=== PATIENT | male | born 1980 | race Caucasian/White ===

== ENCOUNTER 2016-10-14 21:53 | Emergency (ER) ==
[2016-10-14] MEDS ORDERED: SODIUM CHLORIDE 1,000 ML IV STA (21:55)
[2016-10-14 22:07] VITALS: BP 107/51; TEMP 101.1; BMI 25.8
[2016-10-14] MEDS ORDERED: ZOFRAN 4 MG/2 ML IVP STA (22:07)
[2016-10-14 22:08] LABS: BASOPHILS % (AUTO) 0.1 % (0.0-3.0); HEMATOCRIT 41.9 % (42.0-52.0); HEMOGLOBIN 13.6 g/dl (14.0-18.0); IMMATURE GRANULOCYTE % (AUTO) 0.5 % (0.0-5.0); LYMPHOCYTES # (AUTO) 1.4 K/uL (0.60-3.4); LYMPHOCYTES % (AUTO) 9.7 (10.0-50.0); MEAN CORPUSCULAR HEMOGLOBIN 30.1 pg (27.0-31.0); MEAN CORPUSCULAR HGB CONC 32.5 (31.8-35.4); MEAN CORPUSCULAR VOLUME 92.7 fl (80.0-94.0); NEUTROPHILS # (AUTO) 11.9 K/ul (2.0-6.9); NEUTROPHILS % (AUTO) 82.7; PLATELET COUNT 257 10^3/uL (140-440); RED BLOOD COUNT 4.52 10^6/ul (4.70-6.10); WHITE BLOOD COUNT 14.37 K/ul (4.2-10.2)
[2016-10-14] MEDS ORDERED: DILAUDID 1 MG/ML SYRINGE ONE ×2 (22:21→23:30)
[2016-10-14] MEDS: DILAUDID 1 MG/ML SYRINGE IVP PRN ×2 (22:24→23:32)
[2016-10-14 22:25] LABS: ALBUMIN 4.6 g/dL (3.4-5.0); ALBUMIN/GLOBULIN RATIO 1.35; ANION GAP 17.7; BILIRUBIN,TOTAL 0.46 mg/dL (0.00-1.20); BUN/CREATININE RATIO 20.93; CALCIUM 9.8 mg/dL (8.2-10.2); CREATININE 0.86 mg/dL (0.60-1.10); POTASSIUM 3.7 mmol/L (3.5-5.1)
[2016-10-14 22:52] LABS: ERYTHROCYTE SEDIMENTATION RATE 12 mm/hr (0-15); ESR INTERNAL QC INTERNAL QC VALID
[2016-10-14 22:53] LABS: CREATINE KINASE 191 U/L
[2016-10-14 22:55] LABS: CREATINE KINASE MB 1.6 ng/ml (0.0-3.6)
[2016-10-14 23:24] LABS: BILIRUBIN,URINE Negative (NEGATIVE); KETONES,URINE Trace (NEGATIVE); LEUKOCYTE ESTERASE ,URINE Negative (NEGATIVE); NITRITE,URINE Negative (NEGATIVE); PROTEIN,URINE 2+ (NEGATIVE); URINE, BLOOD Negative (NEGATIVE)
--- NOTE | 2016-10-14 23:24 | CT ---
Exam: CT of the abdomen and pelvis without and with contrast History: Abdominal pain and fever Technique: [address] of the abdomen and pelvis pre and post intravascular contrast FINDINGS: The lung bases are clear. No significant liver abnormality. The adrenals, pancreas and spl een are unremarkable. The stomach and hiatus are unremarkable.The gallbladder appears normal. There is a 2 mm nonobstructing calculus in the left kidney. The kidneys and collecting system are unremar kable otherwise. The appendix is not seen. Bowel loops demonstrate normal caliber. No inflamatory c hange seen in the mesentery or retroperitoneum. Vascular structures appear normal. Pelvic genitourinary structures appear normal. Pelvic bowel loops are unremarkable. No inflammatory change in the pelvic fat. No acute abnormality of the abdominal or pelvic skeleton. Impression: 1. No inflammatory process, bowel or urinary obstruction is seen. 2. Single nonobstructing calculus in the left kidney
[2016-10-14 23:26] LABS: ADD URINE MICROSCOPIC YES
[2016-10-14 23:34] LABS: COCAIN SCREEN,URINE NEGATIVE (NEGATIVE)
[2016-10-14] MEDS ORDERED: PHENERGAN 25 MG/ML VIAL 25 MG in SODIUM CHLORIDE 50 ML IV STA (23:38)
--- NOTE | 2016-10-14 23:41 | ED.PDOC ---
General ED Provider: Dr. SARAH FARNSWORTH-ER Chief Complaint: Abdominal Pain Stated Complaint: im hurting Time Seen by Physician: 22:05 Mode of Arrival: Walk-In Information Source: Patient, Family Exam Limitations: No limitations Nursing and Triage Documentation Reviewed and Agree: Yes GI Complaint Exam - Abdominal Pain Complaint/Exam Onset: Gradual Duration: several hours Symptoms Are: Still present Timing: Constant Initial Severity: Mild Current Severity: Moderate Location of Pain: Diffuse Character: Reports: Dull, Aching, Cramping Aggravating: Reports: None Associated Signs and Symptoms: Reports: Nausea, Vomiting Related History: Reports: Similar episode AAA Risk Factors: Reports: None Cardiac Risk Factors: Reports: None Testicular Torsion Risk Factors: Reports: None Related Surgical History: Reports: None Abdominal Findings: Present: None Differential Diagnoses: Constipation, Pancreatitis Quality Indicator For Non-Traumatic Chest Pain/Syncope: EKG Performed Review of Systems - Review Of Systems Constitutional: Reports: No symptoms Eyes: Reports: No symptoms Ears, Nose, Mouth, Throat: Reports: No symptoms Respiratory: Reports: No symptoms Cardiac: Reports: No symptoms GI: Reports: Abdominal pain, Diarrhea, Nausea, Vomiting : Reports: No symptoms Musculoskeletal: Reports: No symptoms Skin: Reports: No symptoms Neurological: Reports: No symptoms Endocrine: Reports: No symptoms Hematologic/Lymphatic: Reports: No symptoms All Other Systems: Reviewed and Negative Past Medical History - Past Medical History Previously Healthy: Yes Endocrine: Reports: None Cardiovascular: Reports: None Respiratory: Reports: None Hematological: Reports: None Gastrointestinal: Reports: Pancreatitis Genitourinary: Reports: None Neuro/Psych: Reports: None Musculoskeletal: Reports: None Cancer: Reports: None - Surgical History General Surgical History: Reports: Unknown - Family History Family History: Reports: Unknown - Social History Smoking Status: Current every day smoker Hx Substance Use: No Alcohol Screening: None Lives: With family - Immunizations Tetanus Shot up to Date: Yes Physical Exam - Physical Exam Appearance: Well-appearing, No pain distress, Well-nourished Pain Distress: Moderate Eyes: HUA, EOMI, Conjunctiva clear ENT: Ears normal, Nose normal, Oropharynx normal Neck: Supple Respiratory: Airway patent, Breath sounds clear, Breath sounds equal, Respirations nonlabored Cardiovascular: RRR GI/: Soft Musculoskeletal: Normal strength Skin: Warm Neurological: Sensation intact Psychiatric: Affect appropriate Interpretation - Radiology Interpretation Radiology Interpretation By: Radiologist Radiology Results: Negative Exam Interpreted: CT Scan - EKG Interpretation Time of EKG #1: 23:41 Rate: Xavier Rhythm: Sinus Ectopy: None [place]: NL ST Segment: Normal Re-Evaluation - Re-Evaluation Time of Re-Evaluation: 23:41 Status: Improved Vital Signs Stable: Yes Pain Level: 1 Appearance: NAD Lungs: Clear Skin: Warm and Dry Neuro: Alert and Oriented X3 CV: RRR Critical Care Note - Critical Care Note Total Time (mins): 0 Course - Course Hematology/Chemistry: 10/14/16 22:00 10/14/16 22:00 Orders, Labs, Meds: Lab Review 10/14/16 10/14/16 10/14/16 22:00 22:15 23:20 WBC 14.37 H RBC 4.52 L Hgb 13.6 L Hct 41.9 L MCV 92.7 MCH 30.1 MCHC 32.5 RDW Coeff of Valeriy 12.8 Plt Count 257 Immature Gran % (Auto) 0.5 Neut % (Auto) 82.7 Lymph % (Auto) 9.7 L Wirt % (Auto) 7.0 Eos % (Auto) 0.0 Baso % (Auto) 0.1 Immature Gran # (Auto) 0.1 Neut # 11.9 H Lymph # 1.4 Wirt # 1.0 Eos # 0.0 Baso # 0.0 ESR 12 Sodium 144 Potassium 3.7 Chloride 108 H Carbon Dioxide 22 Anion Gap 17.7 BUN 18 Creatinine 0.86 Estimated GFR (MDRD) 101.00 BUN/Creatinine Ratio 20.93 Glucose 116 H Lactic Acid 15.0 Calcium 9.8 Total Bilirubin 0.46 AST 22 ALT 22 Alkaline Phosphatase 61 Total Creatine Kinase 191 CK-MB (CK-2) 1.6 CK-MB (CK-2) % 0.30864 Troponin I < 0.0100 Total Protein 8.0 Albumin 4.6 Globulin 3.4 Albumin/Globulin Ratio 1.35 Amylase 65 Lipase 34 Procalcitonin < 0.05 Urine Color Yellow Urine Clarity Clear Urine pH 7.0 Ur Specific [place] 1.020 Urine Protein 2+ Urine Glucose (UA) Negative Urine Ketones Trace Urine Blood Negative Urine Nitrite Negative Urine Bilirubin Negative Urine Urobilinogen 0.2 Ur Leukocyte Esterase Negative Ur Squamous Epith Cells 2-5 Urine Mucus 1+ Urine Opiates Screen Positive Ur Oxycodone Screen Negative Urine Methadone Screen Negative Ur Propoxyphene Screen Negative Ur Barbiturates Screen Negative U Tricyclic Antidepress Negative Ur Phencyclidine Scrn Negative Ur Amphetamine Screen Positive U Methamphetamines Scrn Positive U Benzodiazepines Scrn Negative Urine Cocaine Screen Negative U Cannabinoids Screen Positive Orders Category Date Time Status EKG-(ED ONLY) Stat CARDIO 10/14/16 21:55 Ordered NPO REMINDER: IMAGING ONCE CARE 10/14/16 22:05 Completed ED IV/MEDIPORT/POWERPORT .ONCE EMERGENCY 10/14/16 21:55 Active AMYLASE Stat LAB 10/14/16 22:00 Completed BLOOD CULTURE Stat LAB 10/14/16 22:15 Received CBC W/ AUTO DIFF Stat LAB 10/14/16 22:00 Completed COMPREHENSIVE METABOLIC PANEL Stat LAB 10/14/16 22:00 Completed CREATINE KINASE Stat LAB 10/14/16 22:00 Completed ESR Stat LAB 10/14/16 22:15 Completed LACTIC ACID Stat LAB 10/14/16 22:15 Completed LIPASE Stat LAB 10/14/16 22:00 Completed PROCALCITONIN Stat LAB 10/14/16 22:15 Completed TROPONIN I Stat LAB 10/14/16 22:00 Completed URINALYSIS C & S IF INDICATED Stat LAB 10/14/16 23:20 Completed URINE DRUG SCREEN (RAPID FOR ED) [DRUG SCREEN, URINE, LAB 10/14/16 23:20 Completed RAPID] Stat 0.9 % Sodium Chloride [Saline Flush] MEDS 10/14/16 21:55 Ordered 1 syr IVF PRN PRN Hydromorphone HCl [Dilaudid 1 mg/ml Syringe] MEDS 10/14/16 22:06 Ordered 1 mg IVP Q1HR PRN Ondansetron HCl/Pf [Zofran 4 mg/2 ml] MEDS 10/14/16 22:07 Discontinued 4 mg IVP ONCE STA Promethazine HCl [Phenergan 25 mg/ml Vial] 25 mg MEDS 10/14/16 23:38 Active 0.9 % Sodium Chloride [Sodium Chloride] 50 ml IV ONCE Sodium Chloride 0.9% [Sodium Chloride] 1,000 ml MEDS 10/14/16 21:55 Active IV 100 mls/hr CT ABDOMEN/PELVIS W/WO CONTRAS Stat RADS 10/14/16 22:05 Completed Medications Generic Name Dose Route Start Last Admin Trade Name Freq PRN Reason Stop Dose Admin Hydromorphone HCl 1 mg 06/21/17 22:06 10/14/16 23:32 Dilaudid 1 Mg/Ml Syringe IVP 1 mg Q1HR PRN Administration Abdominal Pain Sodium Chloride 1,000 mls @ 100 mls/hr 10/14/16 21:55 10/14/16 22:22 Sodium Chloride IV 10/15/16 07:54 100 mls/hr .Q10H STA Administration Promethazine HCl 25 mg/ Sodium 51 mls @ 75 mls/hr 10/14/16 23:38 Chloride IV 10/15/16 00:18 ONCE STA Sodium Chloride 1 syr 10/14/16 21:55 10/14/16 22:28 Saline Flush IVF 1 syr PRN PRN Administration To flush IV Discontinued Medications Generic Name Dose Route Start Last Admin Trade Name Freq PRN Reason Stop Dose Admin Ondansetron HCl 4 mg 10/14/16 22:07 10/14/16 22:22 Zofran 4 Mg/2 Ml IVP 10/14/16 22:08 4 mg ONCE STA Administration Vital Signs: Temp Pulse Resp BP Pulse Ox 10/14/16 22:02 101.1 F H 97 H 20 107/51 L 97 Departure - Departure Time of Disposition: 23:42 Disposition: HOME SELF-CARE Discharge Problem: Chronic pancreatitis Qualifiers: Pancreatitis type: unspecified pancreatitis type Qualifier Code: (K86.1) Other chronic pancreatitis Instructions: Pancreatitis (ED) Condition: Good Pt referred to PMD for follow-up: Yes Additional Instructions: f/u with pcp Allergies/Adverse Reactions: Allergies No Known Allergies Allergy (Verified 10/14/16 22:08) Home Medications: Ambulatory Orders Gabapentin [Neurontin] 600 mg PO TID 10/14/16 Disposition Discussed With: Patient, Family
[2016-10-14] MEDS ORDERED: PHENERGAN 25 MG/ML VIAL ONE (23:42)
== END 2016-10-14 23:50 | disposition home or self-care (01) ==
LOC: ED 21:53
DX: K86.1 Other chronic pancreatitis (principal); F17.210 Nicotine dependence, cigarettes, uncomplicated
CPT/HCPCS: 36415; 80053; 80306; 81001; 82150; 82550; 82553; 83605; 83690; 84145; 84484; 85025; 85651; 87040; 93005; 93010; 96361; 96374; 96375; 96376; 99283

== ENCOUNTER 2016-10-16 18:09 | Emergency (ER) | payer OTHER ==
[2016-10-16 18:09] VITALS: BMI 25.8
[2016-10-16 18:20] VITALS: BP 142/85; TEMP 96.8
[2016-10-16] MEDS ORDERED: ZOFRAN 4 MG/2 ML IVP STA (18:57)
[2016-10-16] MEDS ORDERED: SODIUM CHLORIDE 1,000 ML IV STA (18:57)
[2016-10-16] MEDS ORDERED: DILAUDID 1 MG/ML SYRINGE IVP STA ×2 (18:57→20:04)
[2016-10-16 19:09] LABS: BASOPHILS % (AUTO) 0.4 % (0.0-3.0); EOSINOPHILS # (AUTO) 0.1 K/ul (0.0-0.7); EOSINOPHILS % (AUTO) 0.6 % (0.0-7.0); HEMATOCRIT 42.1 % (42.0-52.0); HEMOGLOBIN 13.9 g/dl (14.0-18.0); IMMATURE GRANULOCYTE % (AUTO) 0.3 % (0.0-5.0); LYMPHOCYTES # (AUTO) 1.4 K/uL (0.60-3.4); LYMPHOCYTES % (AUTO) 12.9 (10.0-50.0); MEAN CORPUSCULAR HEMOGLOBIN 30.2 pg (27.0-31.0); MEAN CORPUSCULAR VOLUME 91.5 fl (80.0-94.0); MONOCYTES # (AUTO) 0.7 K/uL (0.4-2.0); MONOCYTES % (AUTO) 6.3 (0-10); NEUTROPHILS # (AUTO) 8.4 K/ul (2.0-6.9); NEUTROPHILS % (AUTO) 79.5; PLATELET COUNT 262 10^3/uL (140-440); WHITE BLOOD COUNT 10.55 K/ul (4.2-10.2)
[2016-10-16 19:30] LABS: ALBUMIN 4.4 g/dL (3.4-5.0); ALBUMIN/GLOBULIN RATIO 1.47; ANION GAP 13.2; BILIRUBIN,TOTAL 0.49 mg/dL (0.00-1.20); BUN/CREATININE RATIO 17.04; CALCIUM 8.8 mg/dL (8.2-10.2); CREATININE 0.88 mg/dL (0.60-1.10); POTASSIUM 3.2 mmol/L (3.5-5.1); TOTAL PROTEIN 7.4 g/dL (6.4-8.2)
[2016-10-16 19:43] LABS: BILIRUBIN,URINE Negative (NEGATIVE); KETONES,URINE 1+ (NEGATIVE); LEUKOCYTE ESTERASE ,URINE Negative (NEGATIVE); NITRITE,URINE Negative (NEGATIVE); PROTEIN,URINE Trace (NEGATIVE); URINE, BLOOD Negative (NEGATIVE)
[2016-10-16 19:46] LABS: CREATINE KINASE 122 U/L
[2016-10-16 19:47] LABS: CREATINE KINASE MB 0.7 ng/ml (0.0-3.6)
[2016-10-16 19:49] LABS: ADD URINE MICROSCOPIC YES
--- NOTE | 2016-10-16 19:54 | CT ---
EXAM: CT of the abdomen pelvis without contrast History: Abdominal pain and vomiting. History of chronic pancreatitis and previous appendectomy Comparison: CT abdomen pelvis 10/14/2016 Technique: Multiplanar CT images through the abdomen pelvis were obtained without the administratio n of IV contrast Findings: Lung bases are clear. No acute osseous abnormalities. No discrete gallstones identified by CT. No focal liver or splenic lesions. No peripancreatic infl ammation. Adrenal glands are unremarkable. 2 mm calculus within the left kidney. No hydronephrosi s. Appendix is not seen. No bowel obstruction. No free air. No ascites. Borderline dilated loop of small bowel within the pelvis. Bladder is not well distended. There is no bladder wall thicken ing. No perirectal inflammation. Scattered colonic stool. Prostate is not enlarged Impression: 1. No acute intra-abdominal or pelvic process. 2. Nonobstructing left nephrolithiasis.
[2016-10-16] MEDS ORDERED: K-DUR PO STA (20:04)
--- NOTE | 2016-10-16 20:07 | ED.PDOC ---
General ED Provider: Dr. SARAH FARNSWORTH-ER Chief Complaint: Nausea/Vomiting Stated Complaint: im vomiting Time Seen by Physician: 18:15 Mode of Arrival: Walk-In Information Source: Patient Exam Limitations: No limitations Nursing and Triage Documentation Reviewed and Agree: Yes GI Complaint Exam - Abdominal Pain Complaint/Exam Onset: Gradual Duration: several hours Symptoms Are: Still present Initial Severity: Mild Current Severity: Moderate Location of Pain: Diffuse Character: Reports: Dull, Aching, Cramping Aggravating: Reports: None Alleviating: Reports: Spontaneous resolution Associated Signs and Symptoms: Reports: Decreased appetite, Nausea, Vomiting. Denies: Diaphoresis, Fever, Cough, Chest pain, Dizziness, Back pain, Constipation, Blood in stool, Dysuria, Urinary frequency, Decreased urine output , Discharge, Diarrhea, Decreased activity Related History: Reports: Similar episode AAA Risk Factors: Reports: None Cardiac Risk Factors: Reports: None Testicular Torsion Risk Factors: Reports: None Surgical Obstruction Risk Factors: Reports: Colicky abdominal pain Abdominal Findings: Present: None Differential Diagnoses: Constipation, Pancreatitis Quality Indicator For Non-Traumatic Chest Pain/Syncope: EKG Performed Review of Systems - Review Of Systems Constitutional: Reports: No symptoms Eyes: Reports: No symptoms Ears, Nose, Mouth, Throat: Reports: No symptoms Respiratory: Reports: No symptoms Cardiac: Reports: No symptoms GI: Reports: Abdominal pain, Nausea, Vomiting : Reports: No symptoms Musculoskeletal: Reports: No symptoms Skin: Reports: No symptoms Neurological: Reports: No symptoms Endocrine: Reports: No symptoms Hematologic/Lymphatic: Reports: No symptoms All Other Systems: Reviewed and Negative Past Medical History - Past Medical History Previously Healthy: Yes Endocrine: Reports: None Cardiovascular: Reports: None Respiratory: Reports: None Hematological: Reports: None Gastrointestinal: Reports: Pancreatitis Genitourinary: Reports: None Neuro/Psych: Reports: None Musculoskeletal: Reports: None Cancer: Reports: None - Surgical History General Surgical History: Reports: Unknown - Family History Family History: Reports: Unknown - Social History Smoking Status: Current every day smoker Hx Substance Use: No Alcohol Screening: None Physical Exam - Physical Exam Appearance: Well-appearing Pain Distress: Moderate Eyes: HUA, EOMI, Conjunctiva clear ENT: Ears normal, Nose normal, Oropharynx normal Neck: Supple Respiratory: Airway patent, Breath sounds clear, Breath sounds equal, Respirations nonlabored Cardiovascular: RRR, Pulses normal, No rub, No murmur GI/: Soft, Nontender, No masses, Bowel sounds normal, No Organomegaly Musculoskeletal: Normal strength Skin: Warm, Dry, Normal color Neurological: Sensation intact, Motor intact, Reflexes intact, Cranial nerves intact, Alert, Oriented Psychiatric: Affect appropriate, Anxious Interpretation - Radiology Interpretation Radiology Interpretation By: Radiologist Radiology Results: Negative Exam Interpreted: CT Scan - EKG Interpretation Time of EKG #1: 20:07 Rate: Normal Rhythm: Sinus Ectopy: None [place]: NL ST Segment: Normal Re-Evaluation - Re-Evaluation Time of Re-Evaluation: 20:07 Status: Improved Vital Signs Stable: Yes Pain Level: 0 Appearance: NAD Lungs: Clear Skin: Warm and Dry Neuro: Alert and Oriented X3 CV: RRR Critical Care Note - Critical Care Note Total Time (mins): 0 Course - Course Hematology/Chemistry: 10/16/16 19:04 10/16/16 19:04 Orders, Labs, Meds: Lab Review 10/16/16 10/16/16 19:04 19:25 WBC 10.55 H RBC 4.60 L Hgb 13.9 L Hct 42.1 MCV 91.5 MCH 30.2 MCHC 33.0 RDW Coeff of Valeriy 12.6 Plt Count 262 Immature Gran % (Auto) 0.3 Neut % (Auto) 79.5 Lymph % (Auto) 12.9 [place] % (Auto) 6.3 Eos % (Auto) 0.6 Baso % (Auto) 0.4 Immature Gran # (Auto) 0.0 Neut # 8.4 H Lymph # 1.4 [place] # 0.7 Eos # 0.1 Baso # 0.0 Sodium 140 Potassium 3.2 L Chloride 105 Carbon Dioxide 25 Anion Gap 13.2 BUN 15 Creatinine 0.88 Estimated GFR (MDRD) 99.00 BUN/Creatinine Ratio 17.04 Glucose 113 H Calcium 8.8 Total Bilirubin 0.49 AST 20 ALT 19 Alkaline Phosphatase 59 Total Creatine Kinase 122 CK-MB (CK-2) 0.7 CK-MB (CK-2) % 0.82247 Troponin I < 0.0100 Total Protein 7.4 Albumin 4.4 Globulin 3.0 Albumin/Globulin Ratio 1.47 Amylase 68 Lipase 33 Urine Color Yellow Urine Clarity Clear Urine pH 6.0 Ur Specific [place] 1.025 Urine Protein Trace Urine Glucose (UA) Negative Urine Ketones 1+ Urine Blood Negative Urine Nitrite Negative Urine Bilirubin Negative Urine Urobilinogen 0.2 Ur Leukocyte Esterase Negative Ur Squamous Epith Cells Pending Orders Category Date Time Status EKG-(ED ONLY) Stat CARDIO 10/16/16 18:56 Completed ED IV/MEDIPORT/POWERPORT .ONCE EMERGENCY 10/16/16 18:57 Active AMYLASE Stat LAB 10/16/16 19:04 Completed CBC W/ AUTO DIFF Stat LAB 10/16/16 19:04 Completed COMPREHENSIVE METABOLIC PANEL Stat LAB 10/16/16 19:04 Completed CREATINE KINASE Stat LAB 10/16/16 19:04 Completed LIPASE Stat LAB 10/16/16 19:04 Completed TROPONIN I Stat LAB 10/16/16 19:04 Completed URINALYSIS C & S IF INDICATED Stat LAB 10/16/16 19:25 Results 0.9 % Sodium Chloride [Saline Flush] MEDS 10/16/16 18:57 Ordered 1 syr IVF PRN PRN Hydromorphone HCl [Dilaudid 1 mg/ml Syringe] MEDS 10/16/16 18:57 Discontinued 1 mg IVP ONCE STA Hydromorphone HCl [Dilaudid 1 mg/ml Syringe] MEDS 10/16/16 20:04 Stat 1 mg IVP ONCE STA Ondansetron HCl/Pf [Zofran 4 mg/2 ml] MEDS 10/16/16 18:57 Discontinued 4 mg IVP ONCE STA Potassium Chloride [K-Dur] MEDS 10/16/16 20:04 Stat 40 meq PO ONCE STA Sodium Chloride 0.9% [Sodium Chloride] 1,000 ml MEDS 10/16/16 18:57 Active IV 100 mls/hr CT ABDOMEN/PELVIS WO CONTRAST Stat RADS 10/16/16 18:56 Completed Medications Generic Name Dose Route Start Last Admin Trade Name Freq PRN Reason Stop Dose Admin Sodium Chloride 1,000 mls @ 100 mls/hr 10/16/16 18:57 10/16/16 19:24 Sodium Chloride IV 10/17/16 04:56 100 mls/hr .Q10H STA Administration Sodium Chloride 1 syr 10/16/16 18:57 10/16/16 19:24 Saline Flush IVF 1 syr PRN PRN Administration To flush IV Discontinued Medications Generic Name Dose Route Start Last Admin Trade Name Freq PRN Reason Stop Dose Admin Hydromorphone HCl 1 mg 10/16/16 18:57 06/23/17 19:26 Dilaudid 1 Mg/Ml Syringe IVP 10/16/16 18:58 1 mg ONCE STA Administration Ondansetron HCl 4 mg 10/16/16 18:57 10/16/16 19:25 Zofran 4 Mg/2 Ml IVP 10/16/16 18:58 4 mg ONCE STA Administration Vital Signs: Temp Pulse Resp BP Pulse Ox 10/16/16 18:14 96.8 F L 77 16 142/85 H 97 Departure - Departure Time of Disposition: 20:07 Disposition: HOME SELF-CARE Discharge Problem: Vomiting Instructions: Acute Nausea and Vomiting (ED) Condition: Good Pt referred to PMD for follow-up: Yes Additional Instructions: use your zofran for nausea --clear liquids--f/u with doctor and get barrera carter done Allergies/Adverse Reactions: Allergies No Known Allergies Allergy (Verified 10/16/16 18:18) Home Medications: Ambulatory Orders Gabapentin [Neurontin] 600 mg PO TID 10/14/16 Disposition Discussed With: Patient, Family
== END 2016-10-16 20:27 | disposition home or self-care (01) ==
LOC: ED 18:09
DX: R11.2 Nausea with vomiting, unspecified (principal); R10.84 Generalized abdominal pain; Z87.19 Personal history of other diseases of the digestive system; F17.210 Nicotine dependence, cigarettes, uncomplicated
CPT/HCPCS: 36415; 80053; 81001; 82150; 82550; 82553; 83690; 84484; 85025; 93005; 93010; 96361; 96374; 96375; 96376; 99283

== ENCOUNTER 2017-05-13 12:29 | Emergency (ER) | payer OTHER ==
[2017-05-13 12:40] VITALS: BP 113/68; TEMP 98.4; BMI 24.3
--- NOTE | 2017-05-13 14:15 | ED.PDOC ---
General ED Provider: Dr. SARAH RANDALL Chief Complaint: Back Pain Stated Complaint: Severe Lt sided lower back pain. was helping his mother bring her groceries and was carrying Bag of groceries on his right and two twelve pack of soda on Lt. While carying he leaned forward and felt excruciating pain in Lt Lower lower back associated with a popping sensation/ Denies radiculating features. is primarily in the LT LS SI region Time Seen by Physician: 14:20 Mode of Arrival: Wheelchair Information Source: Patient Exam Limitations: Clinical condition Nursing and Triage Documentation Reviewed and Agree: Yes Reviewed sepsis parameters & appropriate labs ordered?: Yes System Inflammatory Response Syndrome: Not Applicable Sepsis Protocol: For patient's 13 years and over: Temp is 96.8 and below OR 101 and greater Pulse >90 BPM Resp >20/minute Acutely Altered Mental Status Are patient's symptoms suggestive of a new infection, such as: -Pneumonia -Skin, Soft Tissue -Endocarditis -UTI -Bone, Joint Infection -Implantable Device -Acute Abdominal Infection -Wound Infection -Meningitis -Blood Stream Catheter Infection -Unknown System Inflammatory Response Syndrome: Not Applicable Musculoskeletal Complaint Exam - Shoulder Pain Complaint/Exam Mechanism of Injury: Reports: No known trauma Symptoms Are: Still present Timing: Constant Initial Severity: Moderate Current Severity: Severe Location: Reports: Diffuse Character: Reports: Sharp, Aching, Throbbing Alleviating: Reports: None Aggravating: Reports: Movement, Lifting, Flexion Associated Signs and Symptoms: Denies: Swelling, Redness, Bruising, Fever, Weakness, Numbness, Tingling Related History: Denies: Similar episode, Occupational injury, Dominant hand right, Dominant hand left, Immobility Non-Orthopedic Risk Factors: Reports: None DVT Risk Factors: Reports: None Septic Arthritis Risk Factors: Reports: None Differential Diagnoses: Sprain, Strain, Other (R/O compression Fracture) Review of Systems - Review Of Systems Constitutional: Reports: No symptoms Eyes: Reports: No symptoms Ears, Nose, Mouth, Throat: Reports: No symptoms Respiratory: Reports: No symptoms Cardiac: Reports: No symptoms GI: Reports: No symptoms : Reports: No symptoms Musculoskeletal: Reports: Back pain Skin: Reports: No symptoms Neurological: Reports: No symptoms Endocrine: Reports: No symptoms Hematologic/Lymphatic: Reports: No symptoms All Other Systems: Reviewed and Negative Past Medical History - Past Medical History Previously Healthy: Yes Endocrine: Reports: None Cardiovascular: Reports: None Respiratory: Reports: None Hematological: Reports: None Gastrointestinal: Reports: Pancreatitis Genitourinary: Reports: None Neuro/Psych: Reports: None Musculoskeletal: Reports: None Cancer: Reports: None - Surgical History General Surgical History: Reports: Unknown - Family History Family History: Reports: Unknown - Social History Smoking Status: Current every day smoker Hx Substance Use: No Alcohol Screening: None Physical Exam - Physical Exam Appearance: Well-appearing Ill-appearing: None Pain Distress: Moderate Eyes: HUA, EOMI, Conjunctiva clear ENT: Ears normal Respiratory: Airway patent, Breath sounds clear, Breath sounds equal Cardiovascular: RRR, Pulses normal GI/: Soft, Nontender, No masses Musculoskeletal: Normal strength, ROM intact (reduced lumbar flexion with SI somatic Dysfuncttion on Lt) Skin: Warm, Dry, Normal color Neurological: Sensation intact, Motor intact, Reflexes intact, Alert, Oriented, Alert to verbal Psychiatric: Affect appropriate, Mood appropriate, Anxious Critical Care Note - Critical Care Note Total Time (mins): 0 Course - Course Orders, Labs, Meds: Orders Category Date Time Status UA [URINALYSIS C & S IF INDICATED] Stat LAB 05/13/17 16:24 Ordered URINE DRUG SCREEN (RAPID FOR ED) [DRUG SCREEN, URINE, LAB 05/13/17 16:24 Ordered RAPID] Stat Ketorolac Tromethamine [Toradol] MEDS 05/13/17 14:35 Discontinued 30 mg IM ONCE STA Orphenadrine Citrate [Norflex] MEDS 05/13/17 14:36 Discontinued 100 mg PO ONCE STA CT LUMBAR SPINE W/O CONTRAST Stat RADS 05/13/17 14:35 Completed Medications Discontinued Medications Generic Name Dose Route Start Last Admin Trade Name Freq PRN Reason Stop Dose Admin Ketorolac Tromethamine 30 mg 05/13/17 14:35 05/13/17 14:45 Toradol IM 05/13/17 14:36 30 mg ONCE STA Administration Orphenadrine Citrate 100 mg 05/13/17 14:36 05/13/17 14:46 Norflex PO 05/13/17 14:37 100 mg ONCE STA Administration Vital Signs: Temp Pulse Resp BP Pulse Ox 05/13/17 12:30 98.4 F 77 20 113/68 97 Departure - Departure Time of Disposition: 18:40 Disposition: HOME SELF-CARE Discharge Problem: Low back strain Instructions: Low Back Strain (ED) Condition: Good Pt referred to PMD for follow-up: Yes (1 week) IPMP verified?: No Allergies/Adverse Reactions: Allergies No Known Allergies Allergy (Verified 05/13/17 12:37) Home Medications: Ambulatory Orders Diclofenac Sodium 50 mg PO BID #20 tablet.dr 05/13/17 Orphenadrine Citrate 100 mg PO BID PRN #20 tablet.er 05/13/17
[2017-05-13] MEDS ORDERED: TORADOL IM STA (14:35)
[2017-05-13] MEDS ORDERED: NORFLEX PO STA (14:36)
--- NOTE | 2017-05-13 15:51 | CT ---
EXAM: CT LUMBAR SPINE HISTORY: Acute left lower back pain after bending over TECHNIQUE: CT lumbar spine without contrast. 3-mm axial sections. Coronal and sagittal reformation s. COMPARISON: 10/16/2016 CT abdomen and pelvis FINDINGS: No fracture or subluxation. Normal vertebral body height. No scoliosis. Sacroiliac joints appear n ormal. There is subtle facet and ligamentum flavum hypertrophy and a broad-based disc bulging extend ing from L3/L4 - L5/S1 most apparent at L5/S1 where there may be mild bilateral neural foraminal narr owing. IMPRESSION: 1. No fracture or subluxation. 2. Early degenerative disc disease most apparent at L5/S1.
== END 2017-05-13 16:40 | disposition home or self-care (01) ==
LOC: ED 12:29
DX: S39.012A Strain of muscle, fascia and tendon of lower back, initial encounter (principal); X50.0XXA Overexertion from strenuous movement or load, initial encounter; F17.210 Nicotine dependence, cigarettes, uncomplicated
CPT/HCPCS: 80306; 81001; 96372; 99283

== ENCOUNTER 2017-11-08 12:34 | Outpatient (CLI) | END 2017-11-08 12:35 | disposition home or self-care (01) | LOC: LAB 12:34 | PROVIDERS: ATTEND Emergency Medicine | DX: K86.0 Alcohol-induced chronic pancreatitis (principal); E87.6 Hypokalemia; F31.9 Bipolar disorder, unspecified | CPT/HCPCS: 36415; 80053; 85025 ==

== ENCOUNTER 2017-11-23 18:52 | Emergency (ER) ==
[2017-11-23 18:52] VITALS: BMI 24.3
[2017-11-23 18:57] VITALS: BP 118/84; TEMP 97.4
[2017-11-23] MEDS ORDERED: TORADOL IM STA (19:20)
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
== END 2017-11-23 21:05 | disposition home or self-care (01) ==
LOC: ED 18:52
DX: S43.491A Other sprain of right shoulder joint, initial encounter (principal); S89.91XA Unspecified injury of right lower leg, initial encounter; S79.911A Unspecified injury of right hip, initial encounter; V87.8XXA Person injured in other specified noncollision transport accidents involving motor vehicle (traffic), initial encounter; F17.210 Nicotine dependence, cigarettes, uncomplicated
CPT/HCPCS: 96372; 99282

== ENCOUNTER 2017-11-27 21:04 | Emergency (ER) | payer OTHER ==
[2017-11-27] MEDS ORDERED: ZOFRAN 4 MG/2 ML IM STA (21:05)
[2017-11-27 21:17] VITALS: BP 110/64; TEMP 98.7; BMI 22.8
--- NOTE | 2017-11-27 21:26 | ED.PDOC ---
General ED Provider: Dr. HERMELINDA WILSON Chief Complaint: Abdominal Pain Stated Complaint: Been hurting in the belly since yesterday night, vomited 2-3 times, nausea,. no diarrhea, not constipated, no fever or chills Time Seen by Physician: 21:24 Mode of Arrival: Wheelchair Information Source: Patient Primary Care Provider: HERMELINDA WILSON[facility] Nursing and Triage Documentation Reviewed and Agree: Yes Does patient meet sepsis criteria?: No If yes, has appropriate treatment been initiated?: No System Inflammatory Response Syndrome: Not Applicable Sepsis Protocol: For patient's 13 years and over: Temp is 96.8 and below OR 101 and greater Pulse >90 BPM Resp >20/minute Acutely Altered Mental Status Are patient's symptoms suggestive of a new infection, such as: -Pneumonia -Skin, Soft Tissue -Endocarditis -UTI -Bone, Joint Infection -Implantable Device -Acute Abdominal Infection -Wound Infection -Meningitis -Blood Stream Catheter Infection -Unknown GI Complaint Exam - Abdominal Pain Complaint/Exam Onset: Gradual Symptoms Are: Still present Timing: Constant Initial Severity: Severe Current Severity: Severe Location of Pain: Epigastric Radiates To: Reports: Back Character: Reports: Dull, Aching Aggravating: Reports: Movement, Food Alleviating: Reports: None Associated Signs and Symptoms: Denies: Diaphoresis, Fever, Cough, Chest pain, Dizziness, Back pain, Constipation, Blood in stool, Dysuria, Urinary frequency, Decreased urine output, Decreased appetite, Discharge, Nausea, Vomiting, Diarrhea, Decreased activity AAA Risk Factors: Reports: None Cardiac Risk Factors: Reports: None Testicular Torsion Risk Factors: Reports: None Surgical Obstruction Risk Factors: Reports: None Related Surgical History: Reports: None Abdominal Findings: Absent: Pulsatile mass, Abdominal distention, Unequal femoral pulses, Rebound tenderness Differential Diagnoses: Bowel Obstruction, Pancreatitis, GB, PUD Review of Systems - Review Of Systems Constitutional: Reports: Weakness Eyes: Reports: No symptoms Ears, Nose, Mouth, Throat: Reports: No symptoms Respiratory: Reports: No symptoms Cardiac: Reports: No symptoms GI: Reports: Abdominal pain, Nausea : Reports: No symptoms Musculoskeletal: Reports: No symptoms Skin: Reports: No symptoms Neurological: Reports: No symptoms Endocrine: Reports: No symptoms Hematologic/Lymphatic: Reports: No symptoms All Other Systems: Reviewed and Negative Past Medical History - Past Medical History Previously Healthy: Yes Endocrine: Reports: None Cardiovascular: Reports: None Respiratory: Reports: None Hematological: Reports: None Gastrointestinal: Reports: Pancreatitis Genitourinary: Reports: None Neuro/Psych: Reports: None Musculoskeletal: Reports: None Cancer: Reports: None - Surgical History General Surgical History: Reports: Unknown - Family History Family History: Reports: Unknown - Social History Smoking Status: Current every day smoker Smoking Cessation Counseling Time: > 3 min - 10 min Hx Substance Use: Yes (marijuana) Alcohol Screening: None - Immunizations Tetanus Shot up to Date: Yes Physical Exam - Physical Exam Appearance: Ill-appearing, Thin Pain Distress: Moderate Eyes: EOMI ENT: Ears normal, Nose normal, Oropharynx normal Respiratory: Airway patent, Breath sounds clear, Breath sounds equal, Respirations nonlabored Cardiovascular: RRR, Pulses normal, No rub, No murmur GI/: Tender, Bowel sounds hypoactive Musculoskeletal: Normal strength, ROM intact, No edema, No calf tenderness Skin: Warm, Dry, Normal color Neurological: Sensation intact, Motor intact, Reflexes intact, Cranial nerves intact, Alert, Oriented Psychiatric: Affect appropriate, Mood appropriate Interpretation - Radiology Interpretation Radiology Interpretation By: Radiologist Exam Interpreted: CT Scan Re-Evaluation - Re-Evaluation Time of Re-Evaluation: 22:20 Status: Improved Critical Care Note - Critical Care Note Total Time (mins): 30 Course - Course Hematology/Chemistry: 11/27/17 21:05 11/27/17 21:05 Orders, Labs, Meds: Lab Review 11/27/17 11/27/17 11/27/17 21:05 21:05 21:30 WBC 15.18 H RBC 4.72 Hgb 14.2 Hct 42.9 MCV 90.9 MCH 30.1 MCHC 33.1 RDW Coeff of Valeriy 12.9 Plt Count 260 Immature Gran % (Auto) 0.3 Neut % (Auto) 88.7 Lymph % (Auto) 6.9 L Chaves % (Auto) 4.0 Eos % (Auto) 0.0 Baso % (Auto) 0.1 Immature Gran # (Auto) 0.1 Neut # (Auto) 13.5 H Lymph # (Auto) 1.0 Chaves # (Auto) 0.6 Eos # (Auto) 0.0 Baso # (Auto) 0.0 Sodium 144 Potassium 3.9 Chloride 107 Carbon Dioxide 22 Anion Gap 18.9 BUN 17 Creatinine 1.09 Estimated GFR (MDRD) 77.00 BUN/Creatinine Ratio 15.59 Glucose 139 H Calcium 10.3 H Total Bilirubin 0.4 AST 24 ALT 28 Alkaline Phosphatase 65 Total Protein 8.5 H Albumin 4.7 Globulin 3.8 Albumin/Globulin Ratio 1.24 Amylase 59 Lipase 19 Urine Color Urine Clarity Urine pH Ur Specific [place] Urine Protein Urine Glucose (UA) Urine Ketones Urine Blood Urine Nitrite Urine Bilirubin Urine Urobilinogen Ur Leukocyte Esterase Urine Microscopic RBC Urine Microscopic WBC Ur Squamous Epith Cells Urine Bacteria Urine Mucus Urine Opiates Screen Negative Ur Oxycodone Screen Negative Urine Methadone Screen Negative Ur Propoxyphene Screen Positive Ur Barbiturates Screen Negative U Tricyclic Antidepress Negative Ur Phencyclidine Scrn Negative Ur Amphetamine Screen Negative U Methamphetamines Scrn Negative U Benzodiazepines Scrn Positive Urine Cocaine Screen Negative U Cannabinoids Screen Positive 11/27/17 21:30 WBC RBC Hgb Hct MCV MCH MCHC RDW Coeff of Valeriy Plt Count Immature Gran % (Auto) Neut % (Auto) Lymph % (Auto) Chaves % (Auto) Eos % (Auto) Baso % (Auto) Immature Gran # (Auto) Neut # (Auto) Lymph # (Auto) Chaves # (Auto) Eos # (Auto) Baso # (Auto) Sodium Potassium Chloride Carbon Dioxide Anion Gap BUN Creatinine Estimated GFR (MDRD) BUN/Creatinine Ratio Glucose Calcium Total Bilirubin AST ALT Alkaline Phosphatase Total Protein Albumin Globulin Albumin/Globulin Ratio Amylase Lipase Urine Color Yellow Urine Clarity Clear Urine pH 7.0 Ur Specific [place] 1.020 Urine Protein 2+ Urine Glucose (UA) Negative Urine Ketones 1+ Urine Blood Negative Urine Nitrite Negative Urine Bilirubin 2+ Urine Urobilinogen 1.0 Ur Leukocyte Esterase Negative Urine Microscopic RBC 0-2 Urine Microscopic WBC 0-2 Ur Squamous Epith Cells 0-2 Urine Bacteria Trace Urine Mucus 4+ Urine Opiates Screen Ur Oxycodone Screen Urine Methadone Screen Ur Propoxyphene Screen Ur Barbiturates Screen U Tricyclic Antidepress Ur Phencyclidine Scrn Ur Amphetamine Screen U Methamphetamines Scrn U Benzodiazepines Scrn Urine Cocaine Screen U Cannabinoids Screen Orders Category Date Time Status AMYLASE Stat LAB 11/27/17 21:05 Completed CBC W/ AUTO DIFF Stat LAB 11/27/17 21:05 Completed COMPREHENSIVE METABOLIC PANEL Stat LAB 11/27/17 21:05 Completed DRUG SCREEN, URINE, RAPID Stat LAB 11/27/17 21:30 Completed LIPASE Stat LAB 11/27/17 21:05 Completed URINALYSIS C & S IF INDICATED Stat LAB 11/27/17 21:30 Completed Hydromorphone HCl [Dilaudid 2 mg/ml Sdv] MEDS 11/27/17 21:49 Discontinued 1 mg IM ONCE STA Hydromorphone HCl/Pf [Dilaudid 2 mg/ml Syringe] MEDS 11/27/17 21:54 Discontinued 2 mg .ROUTE .STK-MED ONE Mag-Al Plus//Lidocaine [Gi Cocktail] MEDS 11/27/17 21:49 Discontinued 30 ml PO ONCE STA Ondansetron HCl/Pf [Zofran 4 mg/2 ml] MEDS 11/27/17 21:05 Discontinued 4 mg IM ONCE STA Promethazine HCl [Phenergan 25 mg/ml Vial] MEDS 11/27/17 21:49 Discontinued 12.5 mg IM ONCE STA CT ABDOMEN/PELVIS WO CONTRAST Stat RADS 11/27/17 21:06 Completed Medications Discontinued Medications Generic Name Dose Route Start Last Admin Trade Name Guanakitoq PRN Reason Stop Dose Admin Al Hydroxide/Mg Hydroxide 30 ml 11/27/17 21:49 11/27/17 21:59 Gi Cocktail PO 11/27/17 21:50 30 ml ONCE STA Administration Hydromorphone HCl 1 mg 11/27/17 21:49 11/27/17 21:59 Dilaudid 2 Mg/Ml Sdv IM 11/27/17 21:50 1 mg ONCE STA Administration Ondansetron HCl 4 mg 11/27/17 21:05 11/27/17 21:23 Zofran 4 Mg/2 Ml IM 11/27/17 21:06 4 mg ONCE STA Administration Promethazine HCl 12.5 mg 11/27/17 21:49 11/27/17 21:59 Phenergan 25 Mg/Ml Vial IM 11/27/17 21:50 12.5 mg ONCE STA Administration Vital Signs: Temp Pulse Resp BP Pulse Ox 11/27/17 21:09 98.7 F 71 20 110/64 100 Departure - Departure Time of Disposition: 22:20 Disposition: HOME SELF-CARE Discharge Problem: Abdominal pain Instructions: Acute Abdominal Pain (ED) Condition: Stable Pt referred to PMD for follow-up: Yes IPMP verified?: No Additional Instructions: increase Hydration soft diet for 3-4 days f/u with PMD Allergies/Adverse Reactions: Allergies No Known Allergies Allergy (Verified 05/13/17 12:37) Home Medications: Ambulatory Orders Orphenadrine Citrate 100 mg PO BID PRN #20 tablet.er 05/13/17 Ondansetron HCl [Zofran] 8 mg PO PRN 09/15/17 Disposition Discussed With: Patient, Family
[2017-11-27] MEDS ORDERED: GI COCKTAIL PO STA (21:49)
[2017-11-27] MEDS ORDERED: DILAUDID 2 MG/ML SDV IM STA (21:49)
[2017-11-27] MEDS ORDERED: PHENERGAN 25 MG/ML VIAL IM STA (21:49)
[2017-11-27] MEDS ORDERED: DILAUDID 2 MG/ML SYRINGE ONE (21:54)
--- NOTE | 2017-11-27 21:56 | CT ---
EXAM: CT scan abdomen pelvis without contrast HISTORY: Abdominal pain COMPARISON: CT scan abdomen pelvis 10/16/2016 FINDINGS: Contiguous axial images obtained through the abdomen pelvis without contrast utilizing 3-m m collimation. Sagittal and coronal reconstructions were imaged and reviewed.. The visualized lung bases are clear. Gallbladder is fluid filled without cholelithiasis. The liver, pancreas, spleen an d adrenal glands have normal atherosclerotic changes are seen involving the aorta right kidney is mor phologically normal. There is punctate nonobstructive calculus interpolar region left kidney. The pr ostate gland normal in size. The bladder is small volumed limiting evaluation. There is umbilical h ernia containing only fat.. Postoperative changes are noted at L5 S1. IMPRESSION: No acute intra-abdominal findings. Nonobstructive left-sided nephrolithiasis
== END 2017-11-27 22:30 | disposition home or self-care (01) ==
LOC: ED 21:04
DX: R10.9 Unspecified abdominal pain (principal); R11.2 Nausea with vomiting, unspecified; R53.1 Weakness; F17.210 Nicotine dependence, cigarettes, uncomplicated
CPT/HCPCS: 36415; 80053; 80306; 81001; 82150; 83690; 85025; 96372; 99283

== ENCOUNTER 2017-12-08 19:38 | Outpatient (CLI) | payer OTHER | END 2017-12-08 19:52 | disposition short-term general hospital (02) | LOC: AMBL 19:38 | PROVIDERS: ATTEND Family Medicine | DX: R06.02 Shortness of breath (principal); F41.0 Panic disorder [episodic paroxysmal anxiety]; R00.0 Tachycardia, unspecified; Z79.899 Other long term (current) drug therapy ==

== ENCOUNTER 2018-01-07 11:00 | Emergency (ER) ==
[2018-01-07 11:04] VITALS: BP 120/79; TEMP 97.6; BMI 22.4
--- NOTE | 2018-01-07 11:46 | ED.PDOC ---
General ED Provider: Dr. JORDON RIDDLE Chief Complaint: Back Pain Stated Complaint: back pain Time Seen by Physician: 11:00 (seen with erika ) Mode of Arrival: Walk-In Information Source: Patient Exam Limitations: No limitations Primary Care Provider: DIANA CRAFT Nursing and Triage Documentation Reviewed and Agree: Yes Does patient meet sepsis criteria?: No System Inflammatory Response Syndrome: Not Applicable Sepsis Protocol: For patient's 13 years and over: Temp is 96.8 and below OR 101 and greater Pulse >90 BPM Resp >20/minute Acutely Altered Mental Status Are patient's symptoms suggestive of a new infection, such as: -Pneumonia -Skin, Soft Tissue -Endocarditis -UTI -Bone, Joint Infection -Implantable Device -Acute Abdominal Infection -Wound Infection -Meningitis -Blood Stream Catheter Infection -Unknown Musculoskeletal Complaint Exam - Back Pain Complaint/Exam Mechanism of Injury: Reports: No known trauma Onset/Duration: 2 days Symptoms Are: Still present Timing: Intermittent Episodes Lasting: Minutes Initial Severity: Moderate Current Severity: Moderate Location: Reports: Discrete Character: Reports: Aching Aggravating: Reports: Movements, Lifting, Bending, Walking Alleviating: Reports: Rest, Position Associated Signs and Symptoms: Denies: Swelling, Redness, Bruising, Fever, Weakness, Numbness, Tingling, Abdominal pain, Flank pain, Bladder incontinence, Bowel incontinence, Weight loss, Pain with weight bearing Related History: Reports: Similar episode TAD Risk Factors: Reports: Smoking Cauda Equina Risk Factors: Reports: None Epidural Abcess Risk Factors: Reports: None Related Surgical History: Reports: None Focal Tenderness: No Paraspinal Muscle Tenderness: No Paraspinal Muscle Spasm: No Scoliosis: No Lordosis: No Kyphosis: No SLR Test: Right Negative, Left Negative Hip Motion Testing Pain: Right Negative, Left Negative Focal Weakness: Present: None Focal Sensory Loss: Present: None Gait: Present: Normal Differential Diagnoses: Strain, Sprain Review of Systems - Review Of Systems Constitutional: Reports: No symptoms Eyes: Reports: No symptoms Ears, Nose, Mouth, Throat: Reports: No symptoms Respiratory: Reports: No symptoms Cardiac: Reports: No symptoms GI: Reports: No symptoms : Reports: No symptoms Musculoskeletal: Reports: Back pain Skin: Reports: No symptoms Neurological: Reports: No symptoms Endocrine: Reports: No symptoms Hematologic/Lymphatic: Reports: No symptoms All Other Systems: Reviewed and Negative Past Medical History - Past Medical History Previously Healthy: Yes Endocrine: Reports: None Cardiovascular: Reports: None Respiratory: Reports: None Hematological: Reports: None Gastrointestinal: Reports: Pancreatitis Genitourinary: Reports: None Neuro/Psych: Reports: None Musculoskeletal: Reports: None Cancer: Reports: None - Surgical History General Surgical History: Reports: Unknown - Family History Family History: Reports: Unknown - Social History Smoking Status: Current every day smoker Hx Substance Use: Yes (marijuana) Alcohol Screening: None - Immunizations Tetanus Shot up to Date: No Physical Exam - Physical Exam Appearance: Well-appearing, No pain distress, Well-nourished Eyes: HUA, EOMI, Conjunctiva clear ENT: Ears normal, Nose normal, Oropharynx normal Respiratory: Airway patent, Breath sounds clear, Breath sounds equal, Respirations nonlabored Cardiovascular: RRR, Pulses normal, No rub, No murmur GI/: Soft, Nontender, No masses, Bowel sounds normal, No Organomegaly Musculoskeletal: Normal strength, ROM intact, No edema, No calf tenderness Skin: Warm, Dry, Normal color Neurological: Sensation intact, Motor intact, Reflexes intact, Cranial nerves intact, Alert, Oriented Psychiatric: Affect appropriate, Mood appropriate Critical Care Note - Critical Care Note Total Time (mins): 0 Course - Course Vital Signs: Temp Pulse Resp BP Pulse Ox 01/07/18 11:00 97.6 F 84 16 120/79 96 Departure - Departure Time of Disposition: 11:45 Disposition: HOME SELF-CARE Discharge Problem: Backache Instructions: Low Back Strain (ED), Acute Low Back Pain (ED) Condition: Good Pt referred to PMD for follow-up: Yes IPMP verified?: No Additional Instructions: Please call your Family Physician as soon as possible to schedule a follow-up appointment. Allergies/Adverse Reactions: Allergies No Known Allergies Allergy (Verified 01/07/18 11:04) Home Medications: Ambulatory Orders Ondansetron HCl [Zofran] 8 mg PO PRN 09/15/17 Disposition Discussed With: Patient
== END 2018-01-07 12:01 | disposition home or self-care (01) ==
LOC: ED 11:00
DX: M54.9 Dorsalgia, unspecified (principal); F17.210 Nicotine dependence, cigarettes, uncomplicated
CPT/HCPCS: 99283

== ENCOUNTER 2018-01-10 13:43 | Outpatient (CLI) | END 2018-01-10 13:44 | disposition home or self-care (01) | LOC: FCC-LAB 13:43 | PROVIDERS: ATTEND Family Medicine | DX: Z51.81 Encounter for therapeutic drug level monitoring (principal); Z87.898 Personal history of other specified conditions | CPT/HCPCS: 80306 ==

== ENCOUNTER 2018-02-15 10:18 | Outpatient (CLI) | payer OTHER | END 2018-02-15 10:19 | disposition home or self-care (01) | LOC: FCC-LAB 10:18 | PROVIDERS: ATTEND Family Medicine | DX: Z51.81 Encounter for therapeutic drug level monitoring (principal); Z79.899 Other long term (current) drug therapy | CPT/HCPCS: 80306 ==

== ENCOUNTER 2018-04-22 14:29 | Emergency (ER) ==
[2018-04-22 14:35] VITALS: BP 126/82; TEMP 98.1; BMI 24.2
[2018-04-22] MEDS ORDERED: ZOFRAN 4 MG/2 ML IM STA (14:53)
[2018-04-22] MEDS ORDERED: DILAUDID 0.5 MG/0.5 ML SYRINGE IM STA (14:53)
--- NOTE | 2018-04-22 16:02 | CT ---
EXAM: CT of the abdomen pelvis without contrast History: Epigastric abdominal pain. Comparison: CT abdomen pelvis 11/27/2017. Technique: Multiplanar CT images through the abdomen pelvis were obtained without the administration of IV contrast Findings: Lung bases are clear. No acute osseous abnormalities. Postsurgical changes at L5-S1. No discrete gallstones identified by CT. No focal liver or splenic lesions. 2 mm calculus seen with in the left kidney. No right renal calculi. No hydronephrosis and no perinephric stranding. No ure teral calculi. No peripancreatic inflammation. Adrenal glands are unremarkable. No bowel obstructi on. No bladder wall thickening. No free air and no ascites. Scattered colonic stool. The appendix is not seen. There are no secondary signs of appendicitis. Impression: 1. No acute intra-abdominal or pelvic process. 2. Nonobstructing left nephrolithiasis
--- NOTE | 2018-04-22 16:36 | ED.PDOC ---
General ED Provider: Dr. JORDON RIDDLE Chief Complaint: Abdominal Pain Stated Complaint: abdominal pain Time Seen by Physician: 14:33 (seen with dewayne ) Mode of Arrival: Walk-In Information Source: Patient Exam Limitations: No limitations Primary Care Provider: PRAVIN DRAPER Nursing and Triage Documentation Reviewed and Agree: Yes Does patient meet sepsis criteria?: No If yes, has appropriate treatment been initiated?: No System Inflammatory Response Syndrome: Not Applicable Sepsis Protocol: For patient's 13 years and over: Temp is 96.8 and below OR 101 and greater Pulse >90 BPM Resp >20/minute Acutely Altered Mental Status Are patient's symptoms suggestive of a new infection, such as: -Pneumonia -Skin, Soft Tissue -Endocarditis -UTI -Bone, Joint Infection -Implantable Device -Acute Abdominal Infection -Wound Infection -Meningitis -Blood Stream Catheter Infection -Unknown GI Complaint Exam - Abdominal Pain Complaint/Exam Onset: Gradual Duration: today Symptoms Are: Still present Timing: Intermittent Initial Severity: Severe Current Severity: Severe Location of Pain: Epigastric Character: Reports: Cramping Aggravating: Reports: None Alleviating: Reports: None Associated Signs and Symptoms: Reports: Nausea. Denies: Diaphoresis, Fever, Cough, Chest pain, Dizziness, Back pain, Constipation, Blood in stool, Dysuria, Urinary frequency, Decreased urine output, Decreased appetite, Discharge, Vomiting, Diarrhea, Decreased activity Related History: Reports: Similar episode AAA Risk Factors: Reports: None Cardiac Risk Factors: Reports: None Testicular Torsion Risk Factors: Reports: None Surgical Obstruction Risk Factors: Reports: None Related Surgical History: Reports: None Abdominal Findings: Present: None Differential Diagnoses: Pancreatitis Review of Systems - Review Of Systems Constitutional: Reports: No symptoms Eyes: Reports: No symptoms Ears, Nose, Mouth, Throat: Reports: No symptoms Respiratory: Reports: No symptoms Cardiac: Reports: No symptoms GI: Reports: Abdominal pain, Nausea : Reports: No symptoms Musculoskeletal: Reports: No symptoms Skin: Reports: No symptoms Neurological: Reports: No symptoms Endocrine: Reports: No symptoms Hematologic/Lymphatic: Reports: No symptoms All Other Systems: Reviewed and Negative Past Medical History - Past Medical History Previously Healthy: Yes Endocrine: Reports: None Cardiovascular: Reports: None Respiratory: Reports: None Hematological: Reports: None Gastrointestinal: Reports: Pancreatitis Genitourinary: Reports: None Neuro/Psych: Reports: None Musculoskeletal: Reports: None Cancer: Reports: None - Surgical History General Surgical History: Reports: Unknown - Family History Family History: Reports: Unknown - Social History Smoking Status: Current every day smoker, Heavy tobacco smoker Hx Substance Use: Yes (marijuana) Alcohol Screening: None Physical Exam - Physical Exam Appearance: Well-appearing, No pain distress, Well-nourished Eyes: HUA, EOMI, Conjunctiva clear ENT: Ears normal, Nose normal, Oropharynx normal Respiratory: Airway patent, Breath sounds clear, Breath sounds equal, Respirations nonlabored Cardiovascular: RRR, Pulses normal, No rub, No murmur GI/: Soft, Nontender, No masses, Bowel sounds normal, No Organomegaly Musculoskeletal: Normal strength, ROM intact, No edema, No calf tenderness Skin: Warm, Dry, Normal color Neurological: Sensation intact, Motor intact, Reflexes intact, Cranial nerves intact, Alert, Oriented Psychiatric: Affect appropriate, Mood appropriate Interpretation - Radiology Interpretation Radiology Interpretation By: Radiologist Radiology Results: No acute changes Re-Evaluation - Re-Evaluation Time of Re-Evaluation: 15:30 Status: Improved Vital Signs Stable: Yes Appearance: NAD Lungs: Clear Skin: Warm and Dry Neuro: Alert and Oriented X3 CV: RRR - Re-Evaluation Time of Re-Evaluation: 16:35 Status: Improved Vital Signs Stable: Yes Pain Level: 0 Appearance: NAD Skin: Warm and Dry Neuro: Alert and Oriented X3 CV: RRR Critical Care Note - Critical Care Note Total Time (mins): 0 Course - Course Hematology/Chemistry: 04/22/18 15:31 04/22/18 15:31 Orders, Labs, Meds: Lab Review 04/22/18 04/22/18 15:31 15:31 WBC 15.31 H RBC 4.96 Hgb 15.1 Hct 46.4 MCV 93.5 MCH 30.4 MCHC 32.5 RDW Coeff of Valeriy 13.2 Plt Count 285 Immature Gran % (Auto) 0.5 Neut % (Auto) 88.2 Lymph % (Auto) 5.5 L [place] % (Auto) 5.6 Eos % (Auto) 0.0 Baso % (Auto) 0.2 Immature Gran # (Auto) 0.1 Neut # (Auto) 13.5 H Lymph # (Auto) 0.8 [place] # (Auto) 0.9 Eos # (Auto) 0.0 Baso # (Auto) 0.0 Sodium 145.4 H Potassium 3.88 Chloride 108.1 H Carbon Dioxide 27.2 Anion Gap 13.98 BUN 17.7 Creatinine 0.93 Estimated GFR (MDRD) 91.00 BUN/Creatinine Ratio 19.03 Glucose 138.2 H Calcium 9.94 Total Bilirubin 0.53 AST 25.2 ALT 22.3 Alkaline Phosphatase 74.2 Total Protein 9.06 H Albumin 5.15 H Globulin 3.91 Albumin/Globulin Ratio 1.31 Amylase 100.9 Lipase 113.8 Plasma/Serum Alcohol < 10.0 Orders Category Date Time Status AMYLASE Stat LAB 04/22/18 15:31 Completed BLOOD ALCOHOL Stat LAB 04/22/18 15:31 Completed CBC W/ AUTO DIFF Stat LAB 04/22/18 15:31 Completed COMPREHENSIVE METABOLIC PANEL Stat LAB 04/22/18 15:31 Completed LIPASE Stat LAB 04/22/18 15:31 Completed Hydromorphone HCl [Dilaudid 0.5 mg/0.5 ml Syringe] MEDS 04/22/18 14:53 Discontinued 0.5 mg IM ONCE STA Ondansetron HCl/Pf [Zofran 4 mg/2 ml] MEDS 04/22/18 14:53 Discontinued 8 mg IM ONCE STA CT ABDOMEN/PELVIS WO CONTRAST Stat RADS 04/22/18 14:52 Completed Medications Discontinued Medications Generic Name Dose Route Start Last Admin Trade Name [place] PRN Reason Stop Dose Admin Hydromorphone HCl 0.5 mg 04/22/18 14:53 04/22/18 15:12 Dilaudid 0.5 Mg/0.5 Ml Syringe IM 04/22/18 14:54 0.5 mg ONCE STA Administration Ondansetron HCl 8 mg 04/22/18 14:53 04/22/18 15:13 Zofran 4 Mg/2 Ml IM 04/22/18 14:54 8 mg ONCE STA Administration Vital Signs: Temp Pulse Resp BP Pulse Ox 04/22/18 14:30 98.1 F 76 20 126/82 98 Departure - Departure Time of Disposition: 16:35 Disposition: HOME SELF-CARE Discharge Problem: Abdominal pain Instructions: Abdominal Pain (ED) Condition: Good Pt referred to PMD for follow-up: Yes IPMP verified?: No Additional Instructions: Please call your Family Physician as soon as possible to schedule a follow-up appointment. Allergies/Adverse Reactions: Allergies No Known Allergies Allergy (Verified 04/22/18 14:37) Home Medications: Ambulatory Orders Oxycodone-Acetaminophe 7.5-325 [Percocet 7.5-325] 1 tab PO Q8H PRN 04/22/18
== END 2018-04-22 16:50 | disposition home or self-care (01) ==
LOC: ED 14:29
DX: R10.9 Unspecified abdominal pain (principal); R11.0 Nausea; F17.210 Nicotine dependence, cigarettes, uncomplicated; Z87.19 Personal history of other diseases of the digestive system
CPT/HCPCS: 36415; 80053; 80307; 82150; 83690; 85025; 96372; 99283

== ENCOUNTER 2018-08-06 15:51 | Emergency (ER) | payer OTHER ==
[2018-08-06 15:58] VITALS: BP 134/87; TEMP 98.4; BMI 28.1
[2018-08-06] MEDS ORDERED: ZOFRAN 4 MG/2 ML IVP STA (16:16)
[2018-08-06] MEDS ORDERED: SODIUM CHLORIDE 1,000 ML IV STA (16:16)
[2018-08-06] MEDS ORDERED: DILAUDID 1 MG/ML SYRINGE IVP STA ×2 (16:17→17:22)
--- NOTE | 2018-08-06 16:21 | ED.PDOC ---
General ED Provider: Dr. SARAH RANDALL Chief Complaint: Urinary Problem Stated Complaint: Severe abdominal and flank pain. Onset this morning with associated nausea, vomiting and diaphoresis. Has severe urgency and has difficulty initiating micturition Time Seen by Physician: 16:10 Mode of Arrival: Walk-In Information Source: Patient Exam Limitations: Clinical condition, Other (writhing in pain ) Primary Care Provider: PRAVIN DRAPER Nursing and Triage Documentation Reviewed and Agree: Yes Does patient meet sepsis criteria?: No System Inflammatory Response Syndrome: Not Applicable Sepsis Protocol: For patient's 13 years and over: Temp is 96.8 and below OR 101 and greater Pulse >90 BPM Resp >20/minute Acutely Altered Mental Status Are patient's symptoms suggestive of a new infection, such as: -Pneumonia -Skin, Soft Tissue -Endocarditis -UTI -Bone, Joint Infection -Implantable Device -Acute Abdominal Infection -Wound Infection -Meningitis -Blood Stream Catheter Infection -Unknown Complaint Exam - Complaint/Exam Patient Complains of: Reports: Dysuria (and flank pain ) Onset/Duration: EARLIER THIS MORNING Symptoms Are: Worse Timing: Constant Initial Severity: Severe Current Severity: Severe Location of Pain: Reports: Diffuse, Left, Flank Character: Reports: Colicky, Constant pressure Aggravating: Reports: Voiding, Straining Alleviating: Reports: None Associated Signs and Symptoms: Reports: Diaphoresis, Back pain, Dysuria Related History: Reports: Similar episode Testicular Torsion Risk Factors: Reports: None Surgical Obstruction Risk Factors: Reports: None Related Surgical History: Reports: None Abdominal Findings: Present: Abdominal distention, Rebound tenderness, Peritoneal signs, CVA Tenderness Genitalia Exam: Present: Normal findings Differential Diagnoses: Ureteral Calculi Review of Systems - Review Of Systems Constitutional: Reports: No symptoms Eyes: Reports: No symptoms Ears, Nose, Mouth, Throat: Reports: No symptoms Respiratory: Reports: No symptoms Cardiac: Reports: No symptoms GI: Reports: Nausea, Vomiting : Reports: Dysuria, Frequency, Flank pain, Pain, Urgency Musculoskeletal: Reports: No symptoms Skin: Reports: No symptoms Neurological: Reports: No symptoms Endocrine: Reports: No symptoms Hematologic/Lymphatic: Reports: No symptoms All Other Systems: Reviewed and Negative Past Medical History - Past Medical History Previously Healthy: Yes Endocrine: Reports: None Cardiovascular: Reports: None Respiratory: Reports: None Hematological: Reports: None Gastrointestinal: Reports: Pancreatitis Genitourinary: Reports: None Neuro/Psych: Reports: None Musculoskeletal: Reports: None Cancer: Reports: None - Surgical History General Surgical History: Reports: Unknown - Family History Family History: Reports: Unknown - Social History Smoking Status: Current every day smoker, Heavy tobacco smoker Hx Substance Use: Yes (marijuana) Alcohol Screening: None - Immunizations Tetanus Shot up to Date: Yes Physical Exam - Physical Exam Appearance: Ill-appearing Ill-appearing: Moderate Pain Distress: Severe Eyes: HUA, EOMI, Conjunctiva clear ENT: Ears normal, Nose normal, Oropharynx normal Neck: Supple Respiratory: Airway patent, Breath sounds clear, Breath sounds equal, Respirations nonlabored Cardiovascular: RRR, Pulses normal, No rub, No murmur GI/: Soft, Nontender, No masses, Bowel sounds normal, No Organomegaly Musculoskeletal: Normal strength, ROM intact, No edema, No calf tenderness Skin: Warm, Dry, Normal color, Diaphoretic Neurological: Sensation intact, Motor intact, Reflexes intact, Cranial nerves intact, Alert, Oriented Psychiatric: Affect appropriate, Mood appropriate Interpretation - Radiology Interpretation Radiology Interpretation By: Radiologist Exam Interpreted: CT Scan Xray Comments: lt ureteral calculus Critical Care Note - Critical Care Note Total Time (mins): 60 Course - Course Hematology/Chemistry: 08/06/18 16:18 08/06/18 16:18 Orders, Labs, Meds: Lab Review 08/06/18 08/06/18 08/06/18 16:05 16:10 16:18 WBC 19.26 H RBC 4.38 L Hgb 13.6 L Hct 41.2 L MCV 94.1 H MCH 31.1 H MCHC 33.0 RDW Coeff of Valeriy 12.5 Plt Count 264 Immature Gran % (Auto) 0.5 Neut % (Auto) 77.8 Lymph % (Auto) 10.7 [place] % (Auto) 10.2 H Eos % (Auto) 0.5 Baso % (Auto) 0.3 Immature Gran # (Auto) 0.1 Neut # (Auto) 15.0 H Lymph # (Auto) 2.1 [place] # (Auto) 2.0 Eos # (Auto) 0.1 Baso # (Auto) 0.1 Sodium Potassium Chloride Carbon Dioxide Anion Gap BUN Creatinine Estimated GFR (MDRD) BUN/Creatinine Ratio Glucose Calcium Total Bilirubin AST ALT Alkaline Phosphatase Total Protein Albumin Globulin Albumin/Globulin Ratio Amylase Lipase 86.4 Urine Color Yellow Urine Clarity Clear Urine pH 5.0 Ur Specific [place] 1.020 Urine Protein Negative Urine Glucose (UA) Negative Urine Ketones Trace Urine Blood Negative Urine Nitrite Negative Urine Bilirubin Negative Urine Urobilinogen 0.2 Ur Leukocyte Esterase Negative 08/06/18 16:18 WBC RBC Hgb Hct MCV MCH MCHC RDW Coeff of Valeriy Plt Count Immature Gran % (Auto) Neut % (Auto) Lymph % (Auto) [place] % (Auto) Eos % (Auto) Baso % (Auto) Immature Gran # (Auto) Neut # (Auto) Lymph # (Auto) [place] # (Auto) Eos # (Auto) Baso # (Auto) Sodium 140.7 Potassium 4.14 Chloride 105.4 Carbon Dioxide 24.8 Anion Gap 14.64 BUN 24.5 H Creatinine 1.64 H Estimated GFR (MDRD) 48.00 BUN/Creatinine Ratio 14.93 Glucose 96.9 Calcium 9.45 Total Bilirubin 0.65 AST 31.1 ALT 20.6 Alkaline Phosphatase 72.8 Total Protein 8.03 Albumin 5.17 H Globulin 2.86 Albumin/Globulin Ratio 1.80 Amylase 70.6 Lipase Urine Color Urine Clarity Urine pH Ur Specific [place] Urine Protein Urine Glucose (UA) Urine Ketones Urine Blood Urine Nitrite Urine Bilirubin Urine Urobilinogen Ur Leukocyte Esterase Orders Category Date Time Status IV [ED IV/MEDIPORT/POWERPORT] .ONCE EMERGENCY 08/06/18 16:16 Active AMYLASE Stat LAB 08/06/18 16:18 Completed CBC W/ AUTO DIFF Stat LAB 08/06/18 16:18 Completed COMPREHENSIVE METABOLIC PANEL Stat LAB 08/06/18 16:18 Completed LIPASE Stat LAB 08/06/18 16:10 Completed UA [URINALYSIS C & S IF INDICATED] Stat LAB 08/06/18 16:05 Completed 0.9 % Sodium Chloride [Saline Flush] MEDS 08/06/18 16:16 Ordered 1 syr IVF PRN PRN Ceftriaxone Sodium [Rocephin] MEDS 08/06/18 17:43 Discontinued 1 gm .ROUTE .STK-MED ONE Ceftriaxone Sodium [Rocephin] 1 gm MEDS 08/06/18 17:39 Discontinued 0.9 % Sodium Chloride [Sodium Chloride] 50 ml IV ONCE Hydromorphone HCl [Dilaudid 1 mg/ml Syringe] MEDS 08/06/18 16:17 Discontinued 1 mg IVP ONCE STA Hydromorphone HCl [Dilaudid 1 mg/ml Syringe] MEDS 08/06/18 17:22 Discontinued 2 mg IVP ONCE STA Hydromorphone HCl/Pf [Dilaudid 4 mg/ml Syringe] MEDS 08/06/18 17:05 Discontinued 2 mg IVP ONCE STA Ondansetron HCl/Pf [Zofran 4 mg/2 ml] MEDS 08/06/18 16:16 Discontinued 4 mg IVP ONCE STA Promethazine HCl [Phenergan 25 mg/ml Vial] MEDS 08/06/18 17:08 Discontinued 25 mg .ROUTE .STK-MED ONE Promethazine HCl [Phenergan 25 mg/ml Vial] 25 mg MEDS 08/06/18 17:04 Discontinued 0.9 % Sodium Chloride [Sodium Chloride] 50 ml IV ONCE Sodium Chloride 0.9% [Sodium Chloride] 1,000 ml MEDS 08/06/18 16:16 Discontinued IV BOLUS Tamsulosin HCl [Flomax] MEDS 08/06/18 17:38 Discontinued 0.4 mg PO ONCE STA CT ABD/PEL WO RENAL STONE PROT Stat RADS 08/06/18 16:19 Completed Medications Generic Name Dose Route Start Last Admin Trade Name Freq PRN Reason Stop Dose Admin Sodium Chloride 1 syr 08/06/18 16:16 Saline Flush IVF PRN PRN To flush IV Discontinued Medications Generic Name Dose Route Start Last Admin Trade Name Freq PRN Reason Stop Dose Admin Hydromorphone HCl 1 mg 08/06/18 16:17 08/06/18 16:25 Dilaudid 1 Mg/Ml Syringe IVP 08/06/18 16:18 1 mg ONCE STA Administration Hydromorphone HCl 2 mg 08/06/18 17:05 08/06/18 17:25 Dilaudid 4 Mg/Ml Syringe IVP 08/06/18 17:06 Not Given ONCE STA Hydromorphone HCl 2 mg 08/06/18 17:22 08/06/18 17:27 Dilaudid 1 Mg/Ml Syringe IVP 08/06/18 17:23 2 mg ONCE STA Administration Sodium Chloride 1,000 mls @ 1,000 mls/hr 08/06/18 16:16 08/06/18 16:24 Sodium Chloride IV 08/06/18 17:15 1,000 mls/hr BOLUS STA Administration Promethazine HCl 25 mg/ Sodium 51 mls @ 75 mls/hr 08/06/18 17:04 08/06/18 17: 14 Chloride IV 08/06/18 17:44 75 mls/hr ONCE STA Administration Ceftriaxone Sodium 1 gm/ 50 mls @ 75 mls/hr 08/06/18 17:39 08/06/18 17:59 Sodium Chloride IV 08/06/18 18:18 75 mls/hr ONCE STA Administration Ondansetron HCl 4 mg 08/06/18 16:16 08/06/18 16:25 Zofran 4 Mg/2 Ml IVP 08/06/18 16:17 4 mg ONCE STA Administration Tamsulosin HCl 0.4 mg 08/06/18 17:38 08/06/18 17:52 Flomax PO 08/06/18 17:39 0.4 mg ONCE STA Administration Vital Signs: Temp Pulse Resp BP Pulse Ox 08/06/18 15:53 98.4 F 82 28 H 134/87 96 Departure - Departure Time of Disposition: 18:50 Disposition: HOME SELF-CARE Discharge Problem: Ureterolithiasis Instructions: Ureteral Stones (ED) Condition: Fair Pt referred to PMD for follow-up: Yes (SEE DR TREVINO ON WEDNESDAY) IPMP verified?: No Additional Instructions: Remain well hydrated Strain all urine Retain stone See Dr Trevino on Wednesday Has home pain meds and zofran Rx phenergan Allergies/Adverse Reactions: Allergies No Known Allergies Allergy (Verified 08/06/18 15:57) Home Medications: Ambulatory Orders Oxycodone-Acetaminophe 7.5-325 [Percocet 7.5-325] 1 tab PO Q8H PRN 04/22/18 Promethazine HCl [Phenergan Tab] 25 mg PO Q8H PRN #20 tablet 08/06/18 Tamsulosin HCl [Flomax] 0.4 mg PO DAILY PRN #3 cap.er.24h 08/06/18 Disposition Discussed With: Patient, Family
[2018-08-06] MEDS ORDERED: PHENERGAN 25 MG/ML VIAL 25 MG in SODIUM CHLORIDE 50 ML IV STA (17:04)
[2018-08-06] MEDS ORDERED: DILAUDID 4 MG/ML SYRINGE IVP STA (17:05)
[2018-08-06] MEDS ORDERED: PHENERGAN 25 MG/ML VIAL ONE (17:08)
--- NOTE | 2018-08-06 17:08 | CT ---
EXAM: CT abdomen and pelvis without contrast. HISTORY: Acute abdominal pain. TECHNIQUE: Multi-slice transaxial helical CT. Coronal and sagittal reformatons were performed. COMPARISON: 04/22/2018. FINDINGS: The heart is normal in size. The lung bases are clear. 2.9 mm stone suggested within the distal left ureter. There is mild left-sided hydronephrosis. No e vidence of right-sided renal calculus or hydronephrosis is seen. The spleen is normal in size. The gallbladder is normal in size. No intrahepatic biliary ductal dilation is seen. The pancreas and th e bilateral adrenal glands appear grossly unremarkable. The bowel is not dilated. There are a bladder is not well distended. Prostate appears normal in siz e. The appendix is not identified. No pelvic free fluid is seen. Interbody fusion and L5-S1 is aga in seen. IMPRESSION: 1. 3 mm obstructing stone in the distal left ureter which results in mild left-sided hydronephrosis. 2. Otherwise no acute abdominal findings. Limited exam without contrast.
[2018-08-06] MEDS ORDERED: FLOMAX PO STA (17:38)
[2018-08-06] MEDS ORDERED: ROCEPHIN 1 GM in SODIUM CHLORIDE 50 ML IV STA (17:39)
[2018-08-06] MEDS ORDERED: ROCEPHIN ONE (17:43)
== END 2018-08-06 18:50 | disposition home or self-care (01) ==
LOC: ED 15:51
DX: R10.9 Unspecified abdominal pain (principal); R11.2 Nausea with vomiting, unspecified; R61 Generalized hyperhidrosis; R39.15 Urgency of urination; R30.0 Dysuria; M54.9 Dorsalgia, unspecified; R35.0 Frequency of micturition; Z72.0 Tobacco use; N20.1 Calculus of ureter
CPT/HCPCS: 36415; 74176; 80053; 81001; 82150; 83690; 85025; 96361; 96365; 96375; 96376; 99283

== ENCOUNTER 2018-08-14 15:18 | Observation (INO) ==
[~2018-08-14 15:18] MED LIST: CREON DR 12,000 UNITS CAPSULE PO ONE
[2018-08-14] MEDS ORDERED: SODIUM CHLORIDE 1,000 ML IV STA (15:20)
[2018-08-14 15:21] VITALS: BMI 27.3
[2018-08-14] MEDS ORDERED: ZOFRAN 4 MG/2 ML IVP STA (15:21)
[2018-08-14] MEDS ORDERED: DILAUDID 1 MG/ML SYRINGE IVP STA (15:21)
--- NOTE | 2018-08-14 16:23 | CT ---
EXAM: CT scan abdomen pelvis without contrast HISTORY: Vomiting abdominal pain COMPARISON: CT scan abdomen pelvis 04/22/2018 FINDINGS: Contiguous axial images obtained through the abdomen pelvis without contrast utilizing 3-m m collimation. Sagittal and coronal reconstructions were imaged and reviewed.. The visualized lung b ases are clear. The gallbladder is fluid filled without cholelithiasis.. The liver, pancreas, splee n and adrenal glands have normal unenhanced CT appearance. The kidneys are morphologically normal. Mild atherosclerotic changes are seen involving the abdominal aorta without aneurysm. Prostate gland is normal in size. The bladder is small volumed limiting evaluation.. The appendix was not visuali zed.. Submucosal fat deposition is seen within the left colon suggesting chronic colitis.. The sesay sverse colon is decompressed not well evaluated. . Colitis involving answers colon is not excluded. Postoperative changes are noted at L5-S1 IMPRESSION: Change consistent with chronic colitis left colon Decompressed transverse colon. Colitis involving the transverse colon is not excluded
--- NOTE | 2018-08-14 16:49 | ED.PDOC ---
General ED Provider: Dr. SARAH FARNSWORTH-ER Chief Complaint: Abdominal Pain Stated Complaint: im vomiting and having loose stool Time Seen by Physician: 15:20 Mode of Arrival: Walk-In Information Source: Patient Exam Limitations: No limitations Primary Care Provider: PRAVIN ARMENTA Nursing and Triage Documentation Reviewed and Agree: Yes Does patient meet sepsis criteria?: No System Inflammatory Response Syndrome: Not Applicable Sepsis Protocol: For patient's 13 years and over: Temp is 96.8 and below OR 101 and greater Pulse >90 BPM Resp >20/minute Acutely Altered Mental Status Are patient's symptoms suggestive of a new infection, such as: -Pneumonia -Skin, Soft Tissue -Endocarditis -UTI -Bone, Joint Infection -Implantable Device -Acute Abdominal Infection -Wound Infection -Meningitis -Blood Stream Catheter Infection -Unknown GI Complaint Exam - Vomiting/Diarrhea Complaint/Exam Onset/Duration: last night Symptoms Are: Still present Episodes of Vomiting over last 24 Hours: 10 Initial Severity: Mild Current Severity: Moderate Character of Vomiting: Reports: Non-bilious Character of Diarrhea: Reports: Watery Aggravating: Reports: None Associated Signs and Symptoms: Reports: Abdominal pain, Cramping [place] Respirations Present: No Differential Diagnoses: Dehydration Review of Systems - Review Of Systems Constitutional: Reports: No symptoms Eyes: Reports: No symptoms Ears, Nose, Mouth, Throat: Reports: No symptoms Respiratory: Reports: No symptoms Cardiac: Reports: No symptoms GI: Reports: Abdominal pain, Diarrhea, Nausea, Vomiting : Reports: No symptoms Musculoskeletal: Reports: No symptoms Skin: Reports: No symptoms Neurological: Reports: No symptoms Endocrine: Reports: No symptoms Hematologic/Lymphatic: Reports: No symptoms All Other Systems: Reviewed and Negative Past Medical History - Past Medical History Previously Healthy: Yes Endocrine: Reports: None Cardiovascular: Reports: None Respiratory: Reports: None Hematological: Reports: None Gastrointestinal: Reports: Pancreatitis Genitourinary: Reports: None Neuro/Psych: Reports: None Musculoskeletal: Reports: None Cancer: Reports: None - Surgical History General Surgical History: Reports: Unknown - Family History Family History: Reports: Unknown - Social History Smoking Status: Current every day smoker, Heavy tobacco smoker Hx Substance Use: Yes (marijuana) Alcohol Screening: None - Immunizations Tetanus Shot up to Date: No Physical Exam - Physical Exam Appearance: Well-appearing, No pain distress, Well-nourished Pain Distress: Moderate Eyes: HUA, EOMI, Conjunctiva clear ENT: Ears normal, Nose normal, Oropharynx normal Neck: Supple Respiratory: Airway patent, Breath sounds clear, Breath sounds equal, Respirations nonlabored Cardiovascular: RRR GI/: Soft, Nontender, No masses, Bowel sounds normal, No Organomegaly Musculoskeletal: Normal strength, ROM intact, No edema, No calf tenderness Skin: Warm, Dry, Normal color Neurological: Sensation intact, Motor intact, Reflexes intact, Cranial nerves intact, Alert, Oriented Psychiatric: Affect appropriate, Mood appropriate Interpretation - Radiology Interpretation Radiology Interpretation By: Radiologist Radiology Results: Negative Exam Interpreted: CT Scan - EKG Interpretation Time of EKG #1: 16:50 Rate: Normal Rhythm: Sinus Ectopy: None [place]: NL ST Segment: Normal Interpretation: nsr Re-Evaluation - Re-Evaluation Time of Re-Evaluation: 16:51 Status: Improved Vital Signs Stable: Yes Pain Level: 0 Appearance: NAD Lungs: Clear Skin: Warm and Dry Neuro: Alert and Oriented X3 CV: RRR Physician Notification - Case Discussed Physician Notified: dr armenta Time of Notification: 16:51 Critical Care Note - Critical Care Note Total Time (mins): 0 Course - Course Hematology/Chemistry: 08/14/18 15:38 08/14/18 15:38 Orders, Labs, Meds: Lab Review 08/14/18 08/14/18 08/14/18 15:38 15:38 16:16 WBC 17.70 H RBC 4.88 Hgb 14.8 Hct 44.9 MCV 92.0 MCH 30.3 MCHC 33.0 RDW Coeff of Valeriy 12.9 Plt Count 435 Immature Gran % (Auto) 0.5 Neut % (Auto) 83.3 Lymph % (Auto) 9.2 L [place] % (Auto) 6.7 Eos % (Auto) 0.1 Baso % (Auto) 0.2 Immature Gran # (Auto) 0.1 Neut # (Auto) 14.8 H Lymph # (Auto) 1.6 [place] # (Auto) 1.2 Eos # (Auto) 0.0 Baso # (Auto) 0.0 ESR 38 H Sodium 142.3 Potassium 4.39 Chloride 104.0 Carbon Dioxide 22.7 Anion Gap 19.99 BUN 29.7 H Creatinine 2.00 H Estimated GFR (MDRD) 38.00 BUN/Creatinine Ratio 14.85 Glucose 134.6 H Calcium 10.68 H Total Bilirubin 0.69 AST 41.3 ALT 72.9 H Alkaline Phosphatase 91.0 Total Creatine Kinase 70.8 Troponin I < 0.012 Total Protein 9.91 H Albumin 5.73 H Globulin 4.18 Albumin/Globulin Ratio 1.37 Amylase 98.0 Lipase 123.3 Urine Color Alyssa Urine Clarity Cloudy Urine pH 5.5 Ur Specific [place] >=1.030 Urine Protein 2+ Urine Glucose (UA) Negative Urine Ketones 1+ Urine Blood Trace-intact Urine Nitrite Negative Urine Bilirubin 2+ Urine Urobilinogen 0.2 Ur Leukocyte Esterase Negative Urine Microscopic RBC 2-5 Urine Microscopic WBC 0-2 Ur Squamous Epith Cells 0-2 Ur Renal Epithelial Cell 0-2 Amorphous Sediment 1+ Urine Bacteria Trace Hyaline Casts 0-2 Urine Mucus 2+ Orders Category Date Time Status EKG-(ED ONLY) Stat CARDIO 08/14/18 15:19 Ordered ED IV/MEDIPORT/POWERPORT .ONCE EMERGENCY 08/14/18 15:20 Active AMYLASE Stat LAB 08/14/18 15:38 Completed CBC W/ AUTO DIFF Stat LAB 08/14/18 15:38 Completed COMPREHENSIVE METABOLIC PANEL Stat LAB 08/14/18 15:38 Completed CREATINE KINASE Stat LAB 08/14/18 15:38 Completed ESR Stat LAB 08/14/18 15:38 Completed LIPASE Stat LAB 08/14/18 15:38 Completed TROPONIN I Stat LAB 08/14/18 15:38 Completed URINALYSIS C & S IF INDICATED Stat LAB 08/14/18 16:16 Completed 0.9 % Sodium Chloride [Saline Flush] MEDS 08/14/18 15:19 Ordered 1 syr IVF PRN PRN Hydromorphone HCl [Dilaudid 1 mg/ml Syringe] MEDS 08/14/18 15:21 Discontinued 1 mg IVP ONCE STA Ondansetron HCl/Pf [Zofran 4 mg/2 ml] MEDS 08/14/18 15:21 Discontinued 4 mg IVP ONCE STA Sodium Chloride 0.9% [Sodium Chloride] 1,000 ml MEDS 08/14/18 15:[address] ABDOMEN/PELVIS WO CONTRAST Stat RADS 08/14/18 15:20 Completed Medications Generic Name Dose Route Start Last Admin Trade Name Freq PRN Reason Stop Dose Admin Sodium Chloride 1 syr 08/14/18 15:19 04/21/19 15:36 Saline Flush IVF 1 syr PRN PRN Administration To flush IV Discontinued Medications Generic Name Dose Route Start Last Admin Trade Name Jovan PRN Reason Stop Dose Admin Hydromorphone HCl 1 mg 08/14/18 15:21 08/14/18 15:36 Dilaudid 1 Mg/Ml Syringe IVP 08/14/18 15:22 1 mg ONCE STA Administration Sodium Chloride 1,000 mls @ 1,000 mls/hr 08/14/18 15:20 08/14/18 15:36 Sodium Chloride IV 08/14/18 16:19 1,000 mls/hr BOLUS STA Administration Ondansetron HCl 4 mg 08/14/18 15:21 08/14/18 15:36 Zofran 4 Mg/2 Ml IVP 08/14/18 15:22 4 mg ONCE STA Administration Vital Signs: Temp Pulse Resp BP Pulse Ox 08/14/18 15:19 98.2 F 117 H 18 135/67 98 Departure - Departure Time of Disposition: 16:51 Disposition: PLACED OBSERVATION Discharge Problem: Dehydration Instructions: Enteritis (ED) Condition: Good Pt referred to PMD for follow-up: Yes IPMP verified?: No Allergies/Adverse Reactions: Allergies No Known Allergies Allergy (Verified 08/14/18 15:20) Home Medications: Ambulatory Orders Oxycodone-Acetaminophe 7.5-325 [Percocet 7.5-325] 1 tab PO Q8H PRN 04/22/18 Disposition Discussed With: Patient, Family
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
[2018-08-14] MEDS ORDERED: FLAGYL 500 MG/100 ML 100 ML IV ONE ×2 (18:02→20:28)
[2018-08-14] MEDS: FLAGYL 500 MG/100 ML 500 MG in PREMIX 100 ML NS 1 BAG IV SCH ×2 (18:04→21:09)
[2018-08-14] MEDS: ZOFRAN 4 MG/2 ML IVP PRN (18:21)
[2018-08-14] MEDS: DILAUDID 1 MG/ML SYRINGE IVP PRN ×2 (18:21→22:11)
[2018-08-14] MEDS ORDERED: NON-FORMULARY MEDICATION (Citalopram Hydrobromide [Celexa] 10 MG) PO SCH (18:30)
[2018-08-14] MEDS ORDERED: SODIUM CHLORIDE 500 ML IV SCH (18:30)
[2018-08-14] MEDS ORDERED: NICODERM 14 MG TD SCH (18:30)
[2018-08-14] MEDS: SODIUM CHLORIDE 1,000 ML IV SCH (18:40)
[2018-08-14] MEDS ORDERED: CELEXA ONE (19:07)
[2018-08-14] MEDS ORDERED: BUSPAR PO SCH (21:00)
[2018-08-14] MEDS ORDERED: CREON DR 12,000 UNITS CAPSULE PO SCH (21:00)
[2018-08-15] MEDS: ZOFRAN 4 MG/2 ML IVP PRN ×3 (02:31→23:20)
[2018-08-15] MEDS: SODIUM CHLORIDE 1,000 ML IV SCH (02:34)
[2018-08-15] MEDS: DILAUDID 1 MG/ML SYRINGE IVP PRN (03:42)
[2018-08-15] MEDS ORDERED: FLAGYL 500 MG/100 ML 100 ML IV ONE (04:19)
[2018-08-15] MEDS: FLAGYL 500 MG/100 ML 500 MG in PREMIX 100 ML NS 1 BAG IV SCH ×3 (04:23→21:48)
[2018-08-15] MEDS ORDERED: PROTONIX PO SCH (06:30)
[2018-08-15] MEDS ORDERED: PERCOCET 7.5-325 ONE (08:42)
[2018-08-15] MEDS: PERCOCET 7.5-325 PO PRN ×2 (08:44→16:44)
[2018-08-15] MEDS ORDERED: BUSPAR PO ONE (09:00)
[2018-08-15] MEDS ORDERED: CELEXA PO ONE (09:00)
[2018-08-15] MEDS ORDERED: NON-FORMULARY MEDICATION (Citalopram Hydrobromide [Celexa] 10 MG) PO SCH (09:00)
[2018-08-15] MEDS ORDERED: SODIUM CHLORIDE 1,000 ML IV SCH (10:00)
[2018-08-15] MEDS: BUSPAR PO SCH ×2 (10:24→21:47)
[2018-08-15] MEDS ORDERED: CREON DR 12,000 UNITS CAPSULE PO ONE (10:29)
--- NOTE | 2018-08-15 13:32 | PCM.PROG ---
Subjective: 38 yo CM HD 2 admitted to observation for enteritis, intractable N/V/D. He is on flagyl Day 2. He received fluids ON at 185ml/hour x 10 hours, which was 1.5x maintenance. I+O reviewed. Balance 08/14 was 987 and balance for 08/15 was 1360 so far. The pateint had 3 uout, no BM, no emesis. He consumed 100% of meal last night. Labs reviewed. Positive opiate, negative oxycodone, positive marijuana. Unexpected as the patient takes percocet. He noted he may not have had these 48-72 hours before admit. CMP showed normal sodium 140.8, K+ 3.73, cl 106.5, BUN now at 25.3 down from 29.7. Creatinine has improved markedly from 2.0 to 1.03. GFR up to 81 from 38. Glucose stable at 102. A1C 5.32. Calcium normal 8.72. AST/ALT now normal 27.1, 44 respectively. Remainder of CMP WNL. CBC showed WBC down from 17.7 to 11.95, hgb down from 14.8 to 12.0, plt down from 435 to 320. Lymphocytes now normal at 22.1 up from 9.2. MOnocytes up a little. Neutrophils have dropped from 14.8 to 7.9. ESR was elevated. Vitals reviewed and remains afebrile, VS normal stable. BP 109/68. RR 16, O2 97%. Patient asleep upon entry. Easily awoken. As soon as I woke him up he saw me and then gripped his abd. I reviewed overnight nursing observation notes. Ate too fast then had abd pain. Pain was 22:15. 6 0348. Asked for snacks/ popsicles all night. Talked with ON nurse this am. No additional imaging. NO stools so far in hospital and thus unable to check cdiff and pcr. He has not had any emesis either. REVIEW OF SYMPTOMS: (Positives bolded) General: weight loss, fever, chills, night sweats, fatigue, appetite loss (NOT IN HOSPITAL) HEENT: blurry vision, eye pain, eye discharge, dry eyes, decreased vision, sore throat tinnitus, bloody nose, hearin gloss, sinus pain/pressure, ear pain/ pressure. Respiratory: shortness of breath, cough, hemoptysis, wheezing, pleurisy, Cardiovascular: chest pain, PND, palpitation, edema, orthopnea, syncope, swelling of extremities Gastro: Nausea, vomiting, diarrhea, (NONE IN HOSPITAL N/V/D not present) hematemesis, abdominal pain, constipation Genito: hematuria, dysuria, glycosuria, hesitancy, frequency, incontinence [place]ckelo: Arthralgia, myalgia, muscle weakness, joint swelling, NSAID use Skin: rash, pruritis, sores, nail changes, skin thickening, change in wart/mole, Neuro: Migraine, numbness, ataxia, tremor, vertigo, weakness, memory loss, Irritability, dizziness Endocrine: excessive thirst, polyuria, cold intolerance, heat intolerance, goiter Psychiatric: depression, anxiety, anti-depressants, alcohol abuse, drug abuse, insomnia, change in sleep pattern and mood changes Heme/lymph: easy bruising, bleeding gums, blood clots, swollen glands, lymphedema, Allergic/immune: allergic rhinitis, hay fever, asthma, hives Objective: Vital Signs - 24 hr 08/14/18 08/14/18 08/15/18 17:42 22:00 05:11 Temperature 97.8 F 98 F 97.8 F Pulse Rate 81 83 56 L Pulse Rate [ 88 Apical] Respiratory 18 20 16 Rate Blood Pressure 118/81 104/60 O2 Sat by Pulse 97 96 97 Oximetry 08/15/18 08/15/18 10:00 14:00 Temperature 97.9 F 98.0 F Pulse Rate 61 59 L Pulse Rate [ Apical] Respiratory 16 16 Rate Blood Pressure 109/68 100/65 O2 Sat by Pulse 97 96 Oximetry Constitutional: Appearance-No acute distress, Consistent with stated age. Orientation- Oriented x 3, alertGait-Normal pace, normal arm movement. Build and Nutrition-[Mildly overweight BMI 27.3. ] General- Patient is pleasant and cooperative with the interview and exam. Integumentary: General-No rashes, ulcers or lesions. Palpation- Normal skin moisture/turgor. Skin is warm to touch, appropriate. Capillary refill is normal bilateral Upper and lower extremity. Eye: Bilaterally PERRLA, EOMI. No discharge. Upper and lower eyelids are normal. Sclera/conjunctiva normal without discharge. Cornea is normal and clear. Lens is normal. Eyeball appears normal. No ciliary flushing, no conjunctival injection. ENMT: Nose and sinus- No sinus tenderness along frontal/maxillary region. External appearance normal and midline. Nares- bilateral quiet airflow, no discharge. Nasal mucosa- No bleeding noted and no ulcerations observed. [place], moist. Turbinates non boggy. Lips- normal color, moist without cracks/lesions Oral Cavity/Palate- hard/soft palate intact without lesions, oral mucosa pink and moist. Tongue normal midline. Oropharynx- no pharyngeal erythema, Uvula midline. No post nasal drip. No exudate. Salivary glands- Non tender to palpation CHEST/LUNG: Auscultation- Breath sounds normal throughout all lung cadena. Normal tracheal sounds, Normal bronchial sounds overlying sternum, Bronchovessicular sounds normal between scapulae posteriorly, Normal vessicular breath sounds heard throughout periphery. Lungs are clear today. Adventitious sounds- No wheezes, rales, rhonchi. CARDIOVASCULAR: Carotid artery- normal, no bruits or abnormal pulsations. Jugular vein- no pulsations. Palpation/Percussion- Normal PMI, no palpable thrill Auscultation- Regular rate and rhythm. No murmur noted in sitting, supine positions. Extremities- no digital clubbing, cyanosis, edema, increased warmth. ABDOMEN: Inspection- normal and no visible pulsations. Normal contour. Auscultation- Bowel sounds hyperactive. no abdominal bruits. Palpation/ Percussion- soft, diffusely tender, no rebound tenderness, no rigidity (guarding ), no jar tenderness, heel strike negative, no rovsing, non surgical abd, no masses. Liver-no hepatomegaly, Spleen no splenomegaly, Hernias- none. Rectal not examined, patient declined. Musculoskeletal: Generalized-No generalized swelling or edema of extremities, no digital clubbing or cyanosis, neurovascularly intact all four extremities. Neurological: General- Moves all 4 extremities symmetrically. Symmetrical face and body posture. Cranial nerves- individually evaluated II-XII and intact. PERRLA, Normal EOMI, visual/special senses appear intact, Face is symmetrical and normal sensation/movement, normal tongue, normal strength/posture of neck musculature. Neuropsych: Oriented- Person, place, time. (AAOx3), Mood/affect- normal and congruent. Able to articulate well. Speech-Normal speech, normal rate, normal tone, normal use of language, volume and coherence. Thought content- normal with ability to perform basic computations and apply abstract thought/reason. Associations- intact, no SI/HI, no hallucinations, delusions, obsessions. Lymphatic: Head/Neck- normal size and non tender to palpation Laboratory Last Values WBC 11.95 K/ul (4.2-10.2) H D 08/15/18 04:45 RBC 3.98 10^6/ul (4.70-6.10) L 08/15/18 04:45 Hgb 12.0 g/dl (14.0-18.0) L 08/15/18 04:45 Hct 37.7 % (42.0-52.0) L D 08/15/18 04:45 MCV 94.7 fl (80.0-94.0) H 08/15/18 04:45 MCH 30.2 pg (27.0-31.0) 08/15/18 04:45 MCHC 31.8 (31.8-35.4) 08/15/18 04:45 RDW Coeff of Valeriy 13.0 % (11.6-14.8) 08/15/18 04:45 Plt Count 320 10^3/uL (140-440) 08/15/18 04:45 Immature Gran % (Auto) 0.5 % (0.0-5.0) 08/15/18 04:45 Neut % (Auto) 65.9 08/15/18 04:45 Lymph % (Auto) 22.1 (10.0-50.0) 08/15/18 04:45 Dukes % (Auto) 10.3 (0-10) H 08/15/18 04:45 Eos % (Auto) 0.8 % (0.0-7.0) 08/15/18 04:45 Baso % (Auto) 0.4 % (0.0-3.0) 08/15/18 04:45 Immature Gran # (Auto) 0.1 (0.0-1.0) 08/15/18 04:45 Neut # (Auto) 7.9 K/ul (2.0-6.9) H 08/15/18 04:45 Lymph # (Auto) 2.6 K/uL (0.60-3.4) 08/15/18 04:45 Dukes # (Auto) 1.2 K/uL (0.4-2.0) 08/15/18 04:45 Eos # (Auto) 0.1 K/ul (0.0-0.7) 08/15/18 04:45 Baso # (Auto) 0.1 K/uL (0-0.2) 08/15/18 04:45 ESR 38 mm/hr (0-15) H 08/14/18 15:38 Sodium 140.8 mmol/L (134.5-145) 08/15/18 04:45 Potassium 3.73 mmol/L (3.5-5.1) 08/15/18 04:45 Chloride 106.5 mmol/L (98-107) 08/15/18 04:45 Carbon Dioxide 25.0 mmol/L (22-30.0) 08/15/18 04:45 Anion Gap 13.03 08/15/18 04:45 BUN 25.3 mg/dL (9-20) H 08/15/18 04:45 Creatinine 1.03 mg/dL (0.60-1.10) D 08/15/18 04:45 Estimated GFR (MDRD) 81.00 mL/min 08/15/18 04:45 BUN/Creatinine Ratio 24.56 08/15/18 04:45 Glucose 102.0 mg/dL (74-106) 08/15/18 04:45 Hemoglobin A1c 5.32 (4.0-6.0) 08/15/18 04:45 Calcium 8.72 mg/dL (8.4-10.2) 08/15/18 04:45 Total Bilirubin 0.75 mg/dL (0.2-1.3) 08/15/18 04:45 AST 27.1 U/L (17-59) 08/15/18 04:45 ALT 44.0 U/L (0-50) 08/15/18 04:45 Alkaline Phosphatase 58.0 U/L (38-126) D 08/15/18 04:45 Total Creatine Kinase 70.8 U/L (55-170) 08/14/18 15:38 Troponin I < 0.012 ng/ml (0.0000-0.120) 08/14/18 15:38 Total Protein 6.93 g/dL (6.3-8.2) 08/15/18 04:45 Albumin 4.32 g/dL (3.5-5.0) 08/15/18 04:45 Globulin 2.61 08/15/18 04:45 Albumin/Globulin Ratio 1.65 08/15/18 04:45 Amylase 98.0 U/L (30-110) 08/14/18 15:38 Lipase 123.3 U/L (23-300) 08/14/18 15:38 Urine Color Alyssa (YELLOW) 08/14/18 16:16 Urine Clarity Cloudy (CLEAR) 08/14/18 16:16 Urine pH 5.5 (5-9) 08/14/18 16:16 Ur Specific [place] >=1.030 (1.005-1.030) 08/14/18 16:16 Urine Protein 2+ (NEGATIVE) 08/14/18 16:16 Urine Glucose (UA) Negative (NEGATIVE) 08/14/18 16:16 Urine Ketones 1+ (NEGATIVE) 08/14/18 16:16 Urine Blood Trace-intact (NEGATIVE) 08/14/18 16:16 Urine Nitrite Negative (NEGATIVE) 08/14/18 16:16 Urine Bilirubin 2+ (NEGATIVE) 08/14/18 16:16 Urine Urobilinogen 0.2 (0.2) 08/14/18 16:16 Ur Leukocyte Esterase Negative (NEGATIVE) 08/14/18 16:16 Urine Microscopic RBC 2-5 (0-2) 08/14/18 16:16 Urine Microscopic WBC 0-2 (0-2) 08/14/18 16:16 Ur Squamous Epith Cells 0-2 (0-5) 08/14/18 16:16 Ur Renal Epithelial Cell 0-2 (NOT PRESENT) 08/14/18 16:16 Amorphous Sediment 1+ (NOT PRESENT) 08/14/18 16:16 Urine Bacteria Trace (NOT PRESENT) 08/14/18 16:16 Hyaline Casts 0-2 (NOT PRESENT) 08/14/18 16:16 Urine Mucus 2+ (NOT PRESENT) 08/14/18 16:16 Urine Opiates Screen Positive (NEGATIVE) 08/14/18 21:22 Ur Oxycodone Screen Negative (NEGATIVE) 08/14/18 21:22 Urine Methadone Screen Negative (NEGATIVE) 08/14/18 21:22 Ur Propoxyphene Screen Negative (NEGATIVE) 08/14/18 21:22 Ur Barbiturates Screen Negative (NEGATIVE) 08/14/18 21:22 U Tricyclic Antidepress Negative (NEGATIVE) 08/14/18 21:22 Ur Phencyclidine Scrn Negative (NEGATIVE) 08/14/18 21:22 Ur Amphetamine Screen Negative (NEGATIVE) 08/14/18 21:22 U Methamphetamines Scrn Negative (NEGATIVE) 08/14/18 21:22 U Benzodiazepines Scrn Negative (NEGATIVE) 08/14/18 21:22 Urine Cocaine Screen Negative (NEGATIVE) 08/14/18 21:22 U Cannabinoids Screen Positive (NEGATIVE) 08/14/18 21:22 (1) Enteritis Status: Acute Code(s): K52.9 - NONINFECTIVE GASTROENTERITIS AND COLITIS, UNSPECIFIED SNOMED Code(s): 77388284 (2) SYLVESTER (acute kidney injury) Status: Resolved Code(s): N17.9 - ACUTE KIDNEY FAILURE, UNSPECIFIED SNOMED Code(s): 81560460 (3) Leukocytosis Status: Resolved Code(s): D72.829 - ELEVATED WHITE BLOOD CELL COUNT, UNSPECIFIED SNOMED Code(s): 519915431 (4) Dehydration Status: Resolved Code(s): E86.0 - DEHYDRATION SNOMED Code(s): 94030658 Plan: Enteritis/Gastroenteritis/History of pancreatitis: No Emesis or diarrhea during this hospital stay. Good uout. Other than pain meds, the patient is tolerating PO, his labs are improving. continue obs status 24 more hours. Switch pain meds to oral. Maintain CDIFF precautions. Await stooling for labs. Continue SCD/JN for DVT prophy. Patient would benefit from outpatient GI referral. - Admit obs - Strict I+O - C. Diff precautions - Flagyl until c diff returns - Monitor renal function - Up ad richa - Advance diet as tolerated. SYLVESTER: Resolved. - Repeat CMP in am tomorrow Leukocytosis: Resolving. - CBC in am tomorrow. Marijuana Use reported: Complete cessation encouraged. - UDS showed +THC Elevated glucose: A1C normal. Non A1C. Chronic cervical pain: Resume percocet PO when tolerated. Stop dilaudid. - Pain med dilaudid 1 q 3 hours to be continued until tolerating PO. DVT Prophy: JN/SCD. With inflammatory Bowel on ddx, I do not want to induce a bleed. - Encourage up and moving - JN/SCD while supine/lying. Tobacco use 1/2-1ppd: Using nicoderm - Nicoderm 14mg patches while in hospital. Diet: clear liquid, advance as tolerated. Disposition: Improving. DIscussed with him today and he wants to go home tomorrow. Will w/u outpatient GI referral. He agrees with plan. >35 minutes today talking with patient about the above, reviewing labs.
[2018-08-15] MEDS: CREON DR 12,000 UNITS CAPSULE PO SCH (16:39)
[2018-08-15] MEDS: PROTONIX PO SCH (16:40)
[2018-08-15] MEDS ORDERED: NICODERM 14 MG TD SCH (21:00)
[2018-08-16 05:03] VITALS: BP 115/68; TEMP 97.5
[2018-08-16] MEDS: FLAGYL 500 MG/100 ML 500 MG in PREMIX 100 ML NS 1 BAG IV SCH (05:54)
[2018-08-16] MEDS: CREON DR 12,000 UNITS CAPSULE PO SCH (05:54)
[2018-08-16] MEDS: PROTONIX PO SCH (05:55)
[2018-08-16] MEDS: PERCOCET 7.5-325 PO PRN (05:55)
--- NOTE | 2018-08-16 07:32 | PCM.DC ---
Final Diagnosis: Enteritis (Acute) SYLVESTER (acute kidney injury) (Resolved) Dehydration (Resolved) Leukocytosis (REsolved) Anemia (Dilutional suspected) Chronic tobacco use (Chronic) CHronic marijuana use (chronic) Chronic neck pain (chronic) CHronic opiate use (Chronic) (1) Enteritis Status: Acute Code(s): K52.9 - NONINFECTIVE GASTROENTERITIS AND COLITIS, UNSPECIFIED SNOMED Code(s): 44956448 (2) SYLVESTER (acute kidney injury) Status: Resolved Code(s): N17.9 - ACUTE KIDNEY FAILURE, UNSPECIFIED SNOMED Code(s): 46063166 (3) Leukocytosis Status: Resolved Code(s): D72.829 - ELEVATED WHITE BLOOD CELL COUNT, UNSPECIFIED SNOMED Code(s): 178481922, 742992334 (4) Dehydration Status: Resolved Code(s): E86.0 - DEHYDRATION SNOMED Code(s): 61656661 (5) Tobacco abuse Status: Chronic Code(s): Z72.0 - TOBACCO USE SNOMED Code(s): 68855595 (6) Marijuana abuse Status: Chronic Code(s): F12.10 - CANNABIS ABUSE, UNCOMPLICATED SNOMED Code( s): 41209923 (7) Chronic prescription opiate use Status: Chronic Code(s): Z79.891 - [employer] (CURRENT) USE OF OPIATE ANALGESIC SNOMED Code(s): 665568554 Reason for Hospitalization: Intractable Nausea/Vomiting/Diarrhea with CT e/o Enteritis. Prognosis at Discharge: Good: Stable/improved. Pain down to 0-6/10 worse when pain meds wear off. Chronic use of opiates. He has had no emesis nor diarrhea since coming to hospital. Odd issue last night 1813 where HR increased to 150's and nurse checked on patient and he and significant other were in bathroom together and seemed a little disoriented. HR monitored on tele overnight and no further w/ u. Condition at Discharge: Improved markedly. Medications at Discharge: Ambulatory Orders Medication Instructions Recorded Oxycodone-Acetaminophe 7.5-325 1 tab PO Q8H PRN 04/22/18 [Percocet 7.5-325] Citalopram Hydrobromide [Celexa] 10 mg PO DAILY 08/14/18 Ondansetron HCl [Zofran] 8 mg PO Q8HR PRN 08/14/18 Promethazine HCl [Phenergan Tab] 25 mg PO Q8H 08/14/18 Nicotine 14 mg [Nicoderm 14 mg] 1 patch TD BEDTIME #14 patch.[id number] 08/16/18 Lab/Diagnostics: Laboratory Last Values WBC 9.38 K/ul (4.2-10.2) 08/16/18 05:00 RBC 3.97 10^6/ul (4.70-6.10) L 08/16/18 05:00 Hgb 11.9 g/dl (14.0-18.0) L 08/16/18 05:00 Hct 37.7 % (42.0-52.0) L 08/16/18 05:00 MCV 95.0 fl (80.0-94.0) H 08/16/18 05:00 MCH 30.0 pg (27.0-31.0) 08/16/18 05:00 MCHC 31.6 (31.8-35.4) L 08/16/18 05:00 RDW Coeff of Valeriy 12.6 % (11.6-14.8) 08/16/18 05:00 Plt Count 312 10^3/uL (140-440) 08/16/18 05:00 Immature Gran % (Auto) 0.5 % (0.0-5.0) 08/16/18 05:00 Neut % (Auto) 57.4 08/16/18 05:00 Lymph % (Auto) 29.3 (10.0-50.0) 08/16/18 05:00 [place] % (Auto) 10.1 (0-10) H 08/16/18 05:00 Eos % (Auto) 2.2 % (0.0-7.0) 08/16/18 05:00 Baso % (Auto) 0.5 % (0.0-3.0) 08/16/18 05:00 Immature Gran # (Auto) 0.1 (0.0-1.0) 08/16/18 05:00 Neut # (Auto) 5.4 K/ul (2.0-6.9) 08/16/18 05:00 Lymph # (Auto) 2.8 K/uL (0.60-3.4) 08/16/18 05:00 [place] # (Auto) 1.0 K/uL (0.4-2.0) 08/16/18 05:00 Eos # (Auto) 0.2 K/ul (0.0-0.7) 08/16/18 05:00 Baso # (Auto) 0.1 K/uL (0-0.2) 08/16/18 05:00 ESR 38 mm/hr (0-15) H 08/14/18 15:38 Sodium 139.5 mmol/L (134.5-145) 08/16/18 05:00 Potassium 3.61 mmol/L (3.5-5.1) 08/16/18 05:00 Chloride 105.4 mmol/L (98-107) 08/16/18 05:00 Carbon Dioxide 26.4 mmol/L (22-30.0) 08/16/18 05:00 Anion Gap 11.31 08/16/18 05:00 BUN 18.2 mg/dL (9-20) 08/16/18 05:00 Creatinine 0.86 mg/dL (0.60-1.10) 08/16/18 05:00 Estimated GFR (MDRD) 100.00 mL/min 08/16/18 05:00 BUN/Creatinine Ratio 21.16 08/16/18 05:00 Glucose 89.8 mg/dL (74-106) 08/16/18 05:00 Hemoglobin A1c 5.32 (4.0-6.0) 08/15/18 04:45 Calcium 8.67 mg/dL (8.4-10.2) 08/16/18 05:00 Total Bilirubin 0.71 mg/dL (0.2-1.3) 08/16/18 05:00 AST 30.5 U/L (17-59) 08/16/18 05:00 ALT 31.4 U/L (0-50) 08/16/18 05:00 Alkaline Phosphatase 56.0 U/L (38-126) 08/16/18 05:00 Total Creatine Kinase 70.8 U/L (55-170) 08/14/18 15:38 Troponin I < 0.012 ng/ml (0.0000-0.120) 08/14/18 15:38 Total Protein 6.43 g/dL (6.3-8.2) 08/16/18 05:00 Albumin 4.04 g/dL (3.5-5.0) 08/16/18 05:00 Globulin 2.39 08/16/18 05:00 Albumin/Globulin Ratio 1.69 08/16/18 05:00 Amylase 98.0 U/L (30-110) 08/14/18 15:38 Lipase 123.3 U/L (23-300) 08/14/18 15:38 Urine Color Kesha (YELLOW) 08/14/18 16:16 Urine Clarity Cloudy (CLEAR) 08/14/18 16:16 Urine pH 5.5 (5-9) 08/14/18 16:16 Ur Specific [place] >=1.030 (1.005-1.030) 08/14/18 16:16 Urine Protein 2+ (NEGATIVE) 08/14/18 16:16 Urine Glucose (UA) Negative (NEGATIVE) 08/14/18 16:16 Urine Ketones 1+ (NEGATIVE) 08/14/18 16:16 Urine Blood Trace-intact (NEGATIVE) 08/14/18 16:16 Urine Nitrite Negative (NEGATIVE) 08/14/18 16:16 Urine Bilirubin 2+ (NEGATIVE) 08/14/18 16:16 Urine Urobilinogen 0.2 (0.2) 08/14/18 16:16 Ur Leukocyte Esterase Negative (NEGATIVE) 08/14/18 16:16 Urine Microscopic RBC 2-5 (0-2) 08/14/18 16:16 Urine Microscopic WBC 0-2 (0-2) 08/14/18 16:16 Ur Squamous Epith Cells 0-2 (0-5) 08/14/18 16:16 Ur Renal Epithelial Cell 0-2 (NOT PRESENT) 08/14/18 16:16 Amorphous Sediment 1+ (NOT PRESENT) 08/14/18 16:16 Urine Bacteria Trace (NOT PRESENT) 08/14/18 16:16 Hyaline Casts 0-2 (NOT PRESENT) 08/14/18 16:16 Urine Mucus 2+ (NOT PRESENT) 08/14/18 16:16 Urine Opiates Screen Positive (NEGATIVE) 08/15/18 21:30 Ur Oxycodone Screen Positive (NEGATIVE) 08/15/18 21:30 Urine Methadone Screen Negative (NEGATIVE) 08/15/18 21:30 Ur Propoxyphene Screen Negative (NEGATIVE) 08/15/18 21:30 Ur Barbiturates Screen Negative (NEGATIVE) 08/15/18 21:30 U Tricyclic Antidepress Negative (NEGATIVE) 08/15/18 21:30 Ur Phencyclidine Scrn Negative (NEGATIVE) 08/15/18 21:30 Ur Amphetamine Screen Negative (NEGATIVE) 08/15/18 21:30 U Methamphetamines Scrn Negative (NEGATIVE) 08/15/18 21:30 U Benzodiazepines Scrn Negative (NEGATIVE) 08/15/18 21:30 Urine Cocaine Screen Negative (NEGATIVE) 08/15/18 21:30 U Cannabinoids Screen Positive (NEGATIVE) 08/15/18 21:30 Na/K Trends 08/14/18 08/15/18 08/16/18 Range/Units 15:38 04:45 05:00 Sodium 142.3 140.8 139.5 (134.5-145) mmol/L Potassium 4.39 3.73 3.61 (3.5-5.1) mmol/L H/H Trends 08/14/18 08/15/18 08/16/18 Range/Units 15:38 04:45 05:00 Hgb 14.8 12.0 L 11.9 L (14.0-18.0) g/dl Hct 44.9 37.7 L D 37.7 L (42.0-52.0) % WBC Trends 08/14/18 08/15/18 08/16/18 Range/Units 15:38 04:45 05:00 WBC 17.70 H 11.95 H D 9.38 (4.2-10.2) K/ul CT abd pelvis Chronic colitis of left colon. Decompressed transverse colon. Colitis involving the transverse colon not excluded. Education Provided to Patient and Family: 1. Tobacco cessation encouraged 2. Marijuana cessation encouraged 3. Safe use of opiates encouraged 4. Stop flagyl antibiotic as patient has no diarrhea, no stool during hospitalization. - NO PCR testing as no stools in hospital - No Clostridiodes Difficile (infectious causes for diarrhea) testing as no stools in hospital 5. Nausea medications as needed. 6. Follow-up in my office in 1 week. 7. Outpatient evaluation/referral to Gastroenterology (GI) doctor 8. Outpatient evaluation for kidney stone (patient brought this to hospital) analysis. 9. Education handouts provided. Follow-ups: [address] Escobar. Plan referral to GI. Disposition: HOME SELF-CARE Hospital Course: 38 yr old WM presented to ED 15:20 08/14/18 via walk in w/ c/o intractable nausea /vomiting and loose stool. Was seen by DR. Mcbride in ER. Vitals unremarkable except pulse 117. Reported 10-100, non bloody, regurgitant, non bilious, gastric content emesis. Moderate severity, watery diarrhea in addition to the N/ V 5-10 bouts in 24 hours. NO accidents. Abdominal pain/cramping worse over last 24 hours. He tried to tuff it out but could not. Dehydration, Gastroenteritis, colitis were all on ddx. Every day smoker, THC user as well, chronic opiate user. CT negative for appendicitis (hx of removal), history of colitis. EKG completed 16:50 NSR< NL axis, normal EKG. Re-eval 16:51 after fluids. Improved. I admitted patient to observation status for fluid hydration after conversation with ED. Labs showed WBC 17.70, hgb 14.8, plt 435. DDX showed prominent neutrophilia consistent with demargination from emesis. He was reportedly retching in the parking lot. ESR 38. Sodium 142.3, k_ 4.39, cl 104. BUN 29.7, cr 2.0, glucose 134.6, calcium 10.68. Troponin I negative x 1. He had no chest pain. AST 41.3, ALT 72.9. Amylase 98, lipase 123.3. UA showed kesha colored urine, pH 5.5, SG 1.030 consistent with dehydration. 2+ protein, neg glucose, 1= ketones, trace blood. 2+ bili. He was given dilaudid 1mg IVP , zofran 4mg NS 1 L bolus and placed into observation room 121-1. Admitting dx enteritis. W/ history supports gastroenteritis. CT report reviewed "Chronic colitis left colon may represent an UC process. Decompressed transverse colon. Cannot exlude colitis of this region as well." DDX Gastroenteritis, IBD, pancreatitis less likely. Pain is colicky in nature. Rated at 5/10 at present. NO emesis, no diarrhea since being in the hospital. He was given flagyl IV through ER. I continued this through hospital stay, awaiting stool for PCR and C.diff testing. He had no emesis or stooling entirety of hospital stay. C/O abd pain, requested pain meds regularly. Overnight day 1 the patient was given 185 ml/hour of fluids x 10 hours, 1.5x maintenance. JN/SCD used for dvt prophy. He was given nicotine patch for tobacco. Labs were monitored and WBC resolved, Hgb and plt dropped also to 11.9 and 312 respectively, supporting fluid dilutional effect. Urine drug screen initially showed +Opiate, neg oxy, +THC. He had event 08/15 which was odd as his HR increased to 150-160 bpm, nurse checked on him and he and Sig other were in bathroom and acting weird. Disoriented, UDS ordered again and +opiate, +oxy, + THC. This did not return. Pain controlled yesterday w/ orals. Nausea controlled with antiemetics. Patient seemed to be doing better. NO N/V/D, pain better. He needs outpatient referral to GI. Vitals stable, I+O reviewed and stable, Telemetry reviewed and stable other than the event mentioned above. Cramping in abd is better, colicky and intermittent. Overall patient has improved and he is ready to go home. Maximal benefit to hospitalization has been met. I will stop flagyl as there is no diarrhea. No blood per rectum, no N/V/D since admit to hospital. F/U with me in 1 week. Chronic cervical pain stable. HE has had history of pancreatitis, labs this time did not support that problem. D/C from hospital 08/16/18. Admitted 08/14/18 DR. Escobar D/C 08/16/18 Dr. Escobar Activity Ad richa Diet Advance as tolerated. Day of Discharge physical examination: Vital Signs (72 hours) 08/14/18 08/14/18 08/14/18 15:19 17:42 22:00 Temperature 98.2 F 97.8 F 98 F Pulse Rate 117 H 81 83 Pulse Rate [ 88 Apical] Respiratory 18 18 20 Rate Blood Pressure 135/67 118/81 O2 Sat by Pulse 98 97 96 Oximetry 08/15/18 08/15/18 08/15/18 05:11 10:00 14:00 Temperature 97.8 F 97.9 F 98.0 F Pulse Rate 56 L 61 59 L Pulse Rate [ Apical] Respiratory 16 16 16 Rate Blood Pressure 104/60 109/68 100/65 O2 Sat by Pulse 97 97 96 Oximetry 08/15/18 08/15/18 08/15/18 17:37 20:00 22:00 Temperature 97.9 F 97.9 F Pulse Rate 58 L 52 L Pulse Rate [ 80 Apical] Respiratory 20 18 14 Rate Blood Pressure 113/74 114/79 O2 Sat by Pulse 98 98 Oximetry 08/16/18 05:00 Temperature 97.5 F L Pulse Rate 58 L Pulse Rate [ Apical] Respiratory 16 Rate Blood Pressure 115/68 O2 Sat by Pulse 94 L Oximetry Constitutional: Appearance-No acute distress, Consistent with stated age. Orientation- Oriented x 3, alert Gait-Normal pace, normal arm movement. Build and Nutrition-[Mildly overweight BMI 27.3. ] General- Patient is pleasant and cooperative with the interview and exam. Integumentary: General-No rashes, ulcers or lesions. Palpation- Normal skin moisture/turgor. Skin is warm to touch, appropriate. Capillary refill is normal bilateral Upper and lower extremity. ENMT: Nares- bilateral quiet airflow, no discharge. Nasal mucosa- No bleeding noted and no ulcerations observed. [place], moist. Turbinates non boggy. Lips- normal color, moist without cracks/lesions Oral Cavity/Palate- hard/soft palate intact without lesions, oral mucosa pink and moist (AFTER BOLUS). Tongue normal midline. Oropharynx- no pharyngeal erythema, Uvula midline. No post nasal drip. No exudate. Salivary glands- Non tender to palpation CHEST/LUNG: Inspection- symmetric chest wall no pectus deformity. Normal effort , no distress, no use of accessory muscles. Palpation- nontender sternum, ribline. No abnormal pulsations. Auscultation- Breath sounds normal throughout all lung cadena. Normal tracheal sounds, Normal bronchial sounds overlying sternum, Bronchovessicular sounds normal between scapulae posteriorly, Normal vessicular breath sounds heard throughout periphery. Lungs are clear today. Adventitious sounds- No wheezes, rales, rhonchi. CARDIOVASCULAR: Carotid artery- normal, no bruits or abnormal pulsations. Jugular vein- no pulsations. Palpation/Percussion- Normal PMI, no palpable thrill Auscultation- Regular rate and rhythm. No murmur noted in sitting, supine positions. Extremities- no digital clubbing, cyanosis, edema, increased warmth. ABDOMEN: Inspection- normal and no visible pulsations. Normal contour. Auscultation- Bowel sounds hyperactive. no abdominal bruits. Palpation/ Percussion- soft, no tenderness today. no rebound tenderness, no rigidity ( guarding), no jar tenderness, heel strike negative, no rovsing, non surgical abd , no masses. Liver-no hepatomegaly, Spleen no splenomegaly, Hernias- none. Rectal not examined, patient declined. . Peripheral Vascular: Upper extremity Left- Normal temperature with pink nailbeds and no ulcerations. Upper extremity Right- Normal temperature with pink nailbeds and no ulcerations. Lower extremity- Normal temperature with pink nailbeds and no ulcerations. DP pulses 2+ bilaterally. Pedal hair intact. Normal capillary refill. Edema- No edema. Musculoskeletal: Generalized-No generalized swelling or edema of extremities, no digital clubbing or cyanosis, neurovascularly intact all four extremities. Neurological: General- Moves all 4 extremities symmetrically. Symmetrical face and body posture. Cranial nerves- individually evaluated II-XII and intact. PERRLA, Normal EOMI, visual/special senses appear intact, Face is symmetrical and normal sensation/movement, normal tongue, normal strength/posture of neck musculature. Neuropsych: Oriented- Person, place, time. (AAOx3), Mood/affect- normal and congruent. Able to articulate well. Speech-Normal speech, normal rate, normal tone, normal use of language, volume and coherence. Thought content- normal with ability to perform basic computations and apply abstract thought/reason. Associations- intact, no SI/HI, no hallucinations, delusions, obsessions. Judgment/insight- Appropriate. Memory-Recall intact, remote and recent memory intact. Knowledge- Age appropriate fund of knowledge, concentration and attention span normal. Lymphatic: Head/Neck- normal size and non tender to palpation. Plan: 1. Tobacco cessation encouraged 2. Marijuana cessation encouraged 3. Safe use of opiates encouraged 4. Stop flagyl antibiotic as patient has no diarrhea, no stool during hospitalization. - NO PCR testing as no stools in hospital - No Clostridiodes Difficile (infectious causes for diarrhea) testing as no stools in hospital 5. Nausea medications as needed. 6. Follow-up in my office in 1 week. 7. Outpatient evaluation/referral to Gastroenterology (GI) doctor 8. Outpatient evaluation for kidney stone (patient brought this to hospital) analysis. 9. Education handouts provided. Discharge 20 minutes today. Coordination of care/counselling.
== END 2018-08-16 09:15 | disposition home or self-care (01) ==
LOC: ED 15:18 → MEDSURG B 17:20
PROVIDERS: ADMIT Family Medicine; ATTEND Family Medicine
DX: N17.9 Acute kidney failure, unspecified (principal); D72.829 Elevated white blood cell count, unspecified; E86.0 Dehydration; Z72.0 Tobacco use; F12.10 Cannabis abuse, uncomplicated; Z79.891 Long term (current) use of opiate analgesic; R10.9 Unspecified abdominal pain; R11.2 Nausea with vomiting, unspecified; R19.7 Diarrhea, unspecified
CPT/HCPCS: 36415; 80053; 80306; 81001; 82150; 82360; 82550; 83036; 83690; 84484; 85025; 85651; 93005; 93010; 96360; 96375; 97802; 99284

== ENCOUNTER 2018-09-18 23:27 | Emergency (ER) ==
[2018-09-18 23:37] VITALS: BP 128/77; TEMP 98.8; BMI 26.9
[2018-09-18] MEDS ORDERED: BENADRYL 50 MG in SODIUM CHLORIDE 100 ML IV STA (23:45)
--- NOTE | 2018-09-18 23:52 | ED.PDOC ---
General ED Provider: Dr. SARAH SAENZ MD Chief Complaint: Abdominal Pain Stated Complaint: abdominal pain, h/o pancreatitis Time Seen by Physician: 23:41 Mode of Arrival: Walk-In Information Source: Patient Exam Limitations: No limitations Primary Care Provider: PRAVIN DRAPER Nursing and Triage Documentation Reviewed and Agree: Yes Does patient meet sepsis criteria?: No If yes, has appropriate treatment been initiated?: Yes System Inflammatory Response Syndrome: Not Applicable Sepsis Protocol: For patient's 13 years and over: Temp is 96.8 and below OR 101 and greater Pulse >90 BPM Resp >20/minute Acutely Altered Mental Status Are patient's symptoms suggestive of a new infection, such as: -Pneumonia -Skin, Soft Tissue -Endocarditis -UTI -Bone, Joint Infection -Implantable Device -Acute Abdominal Infection -Wound Infection -Meningitis -Blood Stream Catheter Infection -Unknown Review of Systems - Review Of Systems Constitutional: Reports: No symptoms Eyes: Reports: No symptoms Ears, Nose, Mouth, Throat: Reports: No symptoms Respiratory: Reports: No symptoms Cardiac: Reports: No symptoms GI: Reports: Abdominal pain (h/o pancreatitis) : Reports: No symptoms Musculoskeletal: Reports: No symptoms Skin: Reports: No symptoms Neurological: Reports: No symptoms Endocrine: Reports: No symptoms Hematologic/Lymphatic: Reports: No symptoms All Other Systems: Reviewed and Negative Past Medical History - Past Medical History Previously Healthy: Yes Endocrine: Reports: None Cardiovascular: Reports: None Respiratory: Reports: None Hematological: Reports: None Gastrointestinal: Reports: Pancreatitis Genitourinary: Reports: None Neuro/Psych: Reports: None Musculoskeletal: Reports: None Cancer: Reports: None - Surgical History General Surgical History: Reports: Unknown - Family History Family History: Reports: Unknown - Social History Smoking Status: Current every day smoker, Heavy tobacco smoker Hx Substance Use: Yes (marijuana) Alcohol Screening: None - Immunizations Tetanus Shot up to Date: Yes Physical Exam - Physical Exam Appearance: Ill-appearing, Thin Ill-appearing: Mild Pain Distress: Moderate Eyes: HUA, EOMI, Conjunctiva clear ENT: Ears normal, Nose normal, Oropharynx normal Respiratory: Airway patent, Breath sounds clear, Breath sounds equal, Respirations nonlabored Cardiovascular: RRR, Pulses normal, No rub, No murmur GI/: Tender (umbilical area) Musculoskeletal: Normal strength, ROM intact, No edema, No calf tenderness Skin: Warm, Dry, Normal color Neurological: Sensation intact, Motor intact, Reflexes intact, Cranial nerves intact, Alert, Oriented Psychiatric: Affect appropriate, Mood appropriate Critical Care Note - Critical Care Note Total Time (mins): 0 Course - Course Hematology/Chemistry: 09/18/18 23:55 09/18/18 23:55 Orders, Labs, Meds: Lab Review 09/18/18 09/18/18 23:55 23:55 WBC 15.31 H RBC 3.88 L Hgb 11.9 L Hct 37.2 L MCV 95.9 H MCH 30.7 MCHC 32.0 RDW Coeff of Valeriy 13.0 Plt Count 284 Immature Gran % (Auto) 0.5 Neut % (Auto) 75.3 Lymph % (Auto) 13.7 [place] % (Auto) 9.0 Eos % (Auto) 1.2 Baso % (Auto) 0.3 Immature Gran # (Auto) 0.1 Neut # (Auto) 11.5 H Lymph # (Auto) 2.1 [place] # (Auto) 1.4 Eos # (Auto) 0.2 Baso # (Auto) 0.1 Sodium 141.3 Potassium 3.91 Chloride 110.7 H Carbon Dioxide 22.1 Anion Gap 12.41 BUN 22.9 H Creatinine 1.18 H Estimated GFR (MDRD) 69.00 BUN/Creatinine Ratio 19.40 Glucose 103.9 Calcium 8.87 Total Bilirubin 0.22 AST 25.3 ALT 19.7 Alkaline Phosphatase 56.2 Total Protein 7.05 Albumin 4.39 Globulin 2.66 Albumin/Globulin Ratio 1.65 Amylase 97.8 Orders Category Date Time Status NPO REMINDER: IMAGING ONCE CARE 09/18/18 23:43 Completed IV [ED IV/MEDIPORT/POWERPORT] .ONCE EMERGENCY 09/18/18 23:41 Active AMYLASE Stat LAB 09/18/18 23:55 Completed CBC W/ AUTO DIFF Stat LAB 09/18/18 23:55 Completed CMP [COMPREHENSIVE METABOLIC PANEL] Stat LAB 09/18/18 23:55 Completed 0.9 % Sodium Chloride [Saline Flush] MEDS 09/18/18 23:41 Ordered 1 syr IVF PRN PRN Diphenhydramine Inj [Benadryl] MEDS 09/18/18 23:57 Discontinued 50 mg .ROUTE .STK-MED ONE Diphenhydramine Inj [Benadryl] 50 mg MEDS 09/18/18 23:45 Discontinued 0.9 % Sodium Chloride [Sodium Chloride] 100 ml IV ONCE Ketorolac Tromethamine [Toradol] MEDS 09/19/18 00:34 Discontinued 30 mg IVP ONCE STA CT ABDOMEN W/CONTRAST Stat RADS 09/19/18 00:02 Completed Medications Generic Name Dose Route Start Last Admin Trade Name [place] PRN Reason Stop Dose Admin Sodium Chloride 1 syr 09/18/18 23:41 Saline Flush IVF PRN PRN To flush IV Discontinued Medications Generic Name Dose Route Start Last Admin Trade Name Freq PRN Reason Stop Dose Admin Diphenhydramine HCl 50 mg/ 101 mls @ 100 mls/hr 09/18/18 23:45 09/19/18 00:20 Sodium Chloride IV 09/19/18 00:45 100 mls/hr ONCE STA Administration Ketorolac Tromethamine 30 mg 09/19/18 00:34 09/19/18 00:43 Toradol IVP 09/19/18 00:35 30 mg ONCE STA Administration Vital Signs: Temp Pulse Resp BP Pulse Ox 09/18/18 23:28 98.8 F 89 22 128/77 96 Departure - Departure Time of Disposition: 01:45 Disposition: HOME SELF-CARE Discharge Problem: Abdominal pain Qualifiers: Abdominal location: periumbilical Qualified Code(s): R10.33 - Periumbilical pain Instructions: Acute Abdominal Pain (ED) Condition: Good Pt referred to PMD for follow-up: Yes IPMP verified?: No Allergies/Adverse Reactions: Allergies No Known Allergies Allergy (Verified 09/18/18 23:44) Home Medications: Ambulatory Orders Oxycodone-Acetaminophe 7.5-325 [Percocet 7.5-325] 1 tab PO Q8H PRN 04/22/18 Citalopram Hydrobromide [Celexa] 10 mg PO DAILY 08/14/18 Ondansetron HCl [Zofran] 8 mg PO Q8HR PRN 08/14/18 Buspirone HCl 10 mg PO TID 09/18/18 Transfer Form Completed: No Disposition Discussed With: Patient, Family (RTC if worsens, f/u PCP)
[2018-09-18] MEDS ORDERED: BENADRYL ONE (23:57)
[2018-09-19] MEDS ORDERED: TORADOL IVP STA (00:34)
--- NOTE | 2018-09-19 00:57 | CT ---
EXAM: CTA abdomen with contrast HISTORY: Abdominal pain COMPARISON: CT scan abdomen pelvis 08/14/2018 FINDINGS: Tenuous axial images obtained through the abdomen following intravenous contrast utilizing 3-mm collimation. Sagittal and coronal reconstructions were imaged and reviewed.. There is mild at electasis within the lingula and left lung base. The gallbladder is contracted.. The liver, pancrea s, spleen and adrenal glands have normal enhanced CT appearance. The kidneys excrete contrast in a n ormal fashion bilaterally.. Submucosal fat is seen in the left colon compatible with chronic colitis . Mild ASVD seen involving the aorta. Postoperative changes are at L5-S1. IMPRESSION: No acute intra-abdominal findings
[2018-09-19] MEDS ORDERED: ROCEPHIN 1 GM in SODIUM CHLORIDE 50 ML IV STA (00:59)
[2018-09-19] MEDS ORDERED: ZOFRAN 4 MG/2 ML IVP STA (01:01)
[2018-09-19] MEDS ORDERED: ROCEPHIN ONE (01:02)
== END 2018-09-19 01:49 | disposition home or self-care (01) ==
LOC: ED 23:27
DX: R10.33 Periumbilical pain (principal); F17.210 Nicotine dependence, cigarettes, uncomplicated
CPT/HCPCS: 36415; 80053; 82150; 85025; 96365; 96367; 96375; 99283